=== PATIENT | male | born 1955 | race Caucasian/White ===

== ENCOUNTER → 2017-07-22 | Emergency (ER) | payer MEDICARE, OTHER | END | disposition home or self-care (01) | LOC: FTE 09:28 | DX: S90.412A Abrasion, left great toe, initial encounter (principal); E11.9 Type 2 diabetes mellitus without complications; I25.10 Atherosclerotic heart disease of native coronary artery without angina pectoris; W26.8XXA Contact with other sharp object(s), not elsewhere classified, initial encounter; Y92.9 Unspecified place or not applicable; Z79.01 Long term (current) use of anticoagulants; Z79.4 Long term (current) use of insulin; Z98.61 Coronary angioplasty status; Z79.82 Long term (current) use of aspirin | CPT/HCPCS: 99283 ==

== ENCOUNTER → 2017-08-05 | Emergency (ER) | payer MEDICARE, OTHER | END | disposition home or self-care (01) | LOC: FTE 20:16 | DX: S90.211A Contusion of right great toe with damage to nail, initial encounter (principal); E11.9 Type 2 diabetes mellitus without complications; I12.0 Hypertensive chronic kidney disease with stage 5 chronic kidney disease or end stage renal disease; N18.6 End stage renal disease; X58.XXXA Exposure to other specified factors, initial encounter; Y92.9 Unspecified place or not applicable; Z99.2 Dependence on renal dialysis; Z79.4 Long term (current) use of insulin; Z79.82 Long term (current) use of aspirin; Z95.1 Presence of aortocoronary bypass graft | CPT/HCPCS: 73660; 99283-25 ==

== ENCOUNTER 2017-10-17 00:35 | Inpatient (IN) | payer MEDICARE, OTHER ==
[2017-10-17 01:22] LABS: ADD MAN DIFF? NO
[2017-10-17 01:25] LABS: BASOPHILS % 0.5 % (0.0-2.0); EOSINOPHILS # 0.4 10^3/ul (0.0-0.5); EOSINOPHILS % 4.7 % (0.0-7.0); HEMATOCRIT 29.6 % (42.0-52.0); HEMOGLOBIN 10.1 g/dl (14.0-18.0); LYMPHOCYTES # 1.7 10^3/ul (0.8-2.9); LYMPHOCYTES % 21.8 % (15.0-51.0); MEAN CORPUSCULAR HEMOGLOBIN 32.3 pg (29.0-33.0); MEAN CORPUSCULAR HGB CONC 34.1 g/dl (32.0-37.0); MEAN CORPUSCULAR VOLUME 94.6 fl (82.0-101.0); MEAN PLATELET VOLUME 12.7 fl (7.4-10.4); MONOCYTE # 0.9 10^3/ul (0.3-0.9); MONOCYTES % 11.5 % (0.0-11.0); NEUTROPHIL # 4.7 10^3/ul (1.6-7.5); NEUTROPHILS % 61.2 % (39.0-77.0); PLATELET COUNT 136 10^3/UL (140-415); RED BLOOD COUNT 3.13 10^6/ul (4.70-6.10); RED CELL DISTRIBUTION WIDTH 13.2 % (11.5-14.5)
[2017-10-17 01:25] LABS: WHITE BLOOD COUNT 7.7 10^3/ul (4.8-10.8)
[2017-10-17 01:43] LABS: ANION GAP 17 (8-16); BLOOD UREA NITROGEN 25 mg/dl (7-20); CALCIUM 8.4 mg/dl (8.4-10.2); CARBON DIOXIDE 27 mmol/L (21-31); CHLORIDE 100 mmol/L (97-110); CREATININE 5.49 mg/dl (0.61-1.24); GLUCOSE 209 mg/dl (70-220); POTASSIUM 3.2 mmol/L (3.5-5.1); SODIUM 141 mmol/L (135-144)
[2017-10-17 01:54] LABS: TROPONIN-I 0.044 ng/ml (0.00-0.12)
[2017-10-17] MEDS ORDERED: morphine 2 MG INJ IV (07:00)
[2017-10-17 07:03] LABS: CREATINE KINASE 88 IU/L (23-200)
[2017-10-17 07:10] LABS: CK INDEX 0.9; TROPONIN-I 0.076 ng/ml (0.00-0.12)
[2017-10-17] MEDS: CALCIUM ACETATE 667 MG CAP PO ×4 (07:35→17:13)
[2017-10-17] MEDS: ASPIRIN (EC) 81 MG TAB PO (08:15)
[2017-10-17] MEDS: CLOPIDOGREL 75 MG TAB PO (08:15)
[2017-10-17] MEDS: GABAPENTIN 300 MG CAP PO ×2 (08:15→21:19)
[2017-10-17] MEDS: RANOLAZINE (SR) 500 MG TAB PO ×2 (08:16→21:16)
[2017-10-17] MEDS: ISOSORBIDE MONONITRATE(SR)60 MG TAB PO (08:16)
[2017-10-17] MEDS: PANTOPRAZOLE (EC) 40 MG TAB PO ×2 (08:16→17:13)
[2017-10-17] MEDS: NIFEdipine (XL) 30 MG TAB PO ×2 (08:16→21:16)
[2017-10-17] MEDS: METOCLOPRAMIDE 5 MG TAB PO ×4 (08:16→21:16)
[2017-10-17] MEDS: METOPROLOL 50 MG TAB PO (08:17)
[2017-10-17] MEDS ORDERED: DEXTROSE 50% 50 ML SYRINGE IV ×2 (10:30)
[2017-10-17] MEDS ORDERED: GLUCOSE GEL 15 GRAM TUBE PO ×2 (10:30)
[2017-10-17] MEDS ORDERED: GLUCAGON 1 MG INJ IM (10:30)
[2017-10-17] MEDS ORDERED: GLUCOSE GEL 15 GRAM TUBE BUCCAL (10:30)
[2017-10-17 11:40] LABS: TROPONIN-I 0.093 ng/ml (0.00-0.12)
[2017-10-17] MEDS ORDERED: hydrALAzine 20 MG INJ IV (12:30)
[2017-10-17] MEDS: INSULIN ASPART [NOVOLOG] 3 ML PEN SC ×3 (13:00→20:46)
[2017-10-17] MEDS: REGADENOSON 0.4 MG/5 ML SYG (13:05)
[2017-10-17 13:49] LABS: HEMOGLOBIN A1C 6.5 % (0-5.9)
[2017-10-17] MEDS: ONDANSETRON 4 MG INJ IV (14:07)
[2017-10-17] MEDS: HEPARIN 5,000 UNIT/0.5 ML VIAL SC ×2 (14:12→21:18)
[2017-10-17 14:44] LABS: OCCULT BLOOD STOOL NEGATIVE (NEGATIVE)
[2017-10-17 18:08] LABS: CREATINE KINASE 80 IU/L (23-200)
[2017-10-17 18:20] LABS: CK INDEX 1.4; TROPONIN-I 0.078 ng/ml (0.00-0.12)
[2017-10-17 18:22] LABS: CK-MB 1.12 ng/ml (0.0-2.4)
[2017-10-17] MEDS: INSULIN GLARGINE [LANtus] 3 ML PEN SC (20:31)
[2017-10-17] MEDS: ATORVASTATIN 40 MG TAB PO (21:12)
[2017-10-17 22:55] LABS: TROPONIN-I 0.075 ng/ml (0.00-0.12)
[2017-10-18] MEDS: ACCU-CHEK XX (02:01)
[2017-10-18 05:42] LABS: ADD MAN DIFF? NO
[2017-10-18 05:47] LABS: BASOPHILS % 0.5 % (0.0-2.0); EOSINOPHILS # 0.4 10^3/ul (0.0-0.5); EOSINOPHILS % 5.4 % (0.0-7.0); HEMATOCRIT 27.7 % (42.0-52.0); HEMOGLOBIN 9.4 g/dl (14.0-18.0); LYMPHOCYTES # 1.6 10^3/ul (0.8-2.9); LYMPHOCYTES % 21.7 % (15.0-51.0); MEAN CORPUSCULAR HEMOGLOBIN 32.5 pg (29.0-33.0); MEAN CORPUSCULAR HGB CONC 33.9 g/dl (32.0-37.0); MEAN CORPUSCULAR VOLUME 95.8 fl (82.0-101.0); MEAN PLATELET VOLUME 12.6 fl (7.4-10.4); MONOCYTE # 0.8 10^3/ul (0.3-0.9); MONOCYTES % 10.4 % (0.0-11.0); NEUTROPHIL # 4.6 10^3/ul (1.6-7.5); NEUTROPHILS % 61.9 % (39.0-77.0); PLATELET COUNT 149 10^3/UL (140-415); RED BLOOD COUNT 2.89 10^6/ul (4.70-6.10); RED CELL DISTRIBUTION WIDTH 13.1 % (11.5-14.5)
[2017-10-18 05:47] LABS: WHITE BLOOD COUNT 7.4 10^3/ul (4.8-10.8)
[2017-10-18] MEDS: PANTOPRAZOLE (EC) 40 MG TAB PO ×2 (05:55→17:06)
[2017-10-18 06:19] LABS: MAGNESIUM 2.1 mg/dl (1.7-2.5)
[2017-10-18 07:29] LABS: ALANINE AMINOTRANSFERASE 21 IU/L (13-69); ALBUMIN 3.5 g/dl (3.3-4.9); ALBUMIN/GLOBULIN RATIO 1.34; ALKALINE PHOSPHATASE 54 IU/L (42-121); ANION GAP 16 (8-16); ASPARTATE AMINO TRANSFERASE 12 IU/L (15-46); BLOOD UREA NITROGEN 38 mg/dl (7-20); CARBON DIOXIDE 27 mmol/L (21-31); CHLORIDE 101 mmol/L (97-110); CREATININE 7.97 mg/dl (0.61-1.24); GLUCOSE 96 mg/dl (70-220); POTASSIUM 3.7 mmol/L (3.5-5.1); SODIUM 140 mmol/L (135-144); TOTAL PROTEIN 6.1 g/dl (6.1-8.1)
[2017-10-18] MEDS: INSULIN ASPART [NOVOLOG] 3 ML PEN SC ×4 (07:32→22:17)
[2017-10-18] MEDS: METOCLOPRAMIDE 5 MG TAB PO ×4 (08:03→22:14)
[2017-10-18] MEDS: GABAPENTIN 300 MG CAP PO ×2 (08:03→22:13)
[2017-10-18] MEDS: CALCIUM ACETATE 667 MG CAP PO ×3 (08:03→17:06)
[2017-10-18] MEDS: ISOSORBIDE MONONITRATE(SR)60 MG TAB PO (08:04)
[2017-10-18] MEDS: NIFEdipine (XL) 30 MG TAB PO ×2 (08:04→22:14)
[2017-10-18] MEDS: CLOPIDOGREL 75 MG TAB PO (08:04)
[2017-10-18] MEDS: ASPIRIN (EC) 81 MG TAB PO (08:04)
[2017-10-18] MEDS: HEPARIN 5,000 UNIT/0.5 ML VIAL SC ×2 (08:06→22:16)
[2017-10-18] MEDS: INSULIN GLARGINE [LANtus] 3 ML PEN SC ×2 (08:06→19:35)
[2017-10-18] MEDS: RANOLAZINE (SR) 500 MG TAB PO ×2 (08:55→22:13)
[2017-10-18] MEDS: NITROGLYCERIN (SL) 0.4 MG TAB SL (16:46)
[2017-10-18] MEDS: ACETAMINOPHEN 325 MG TAB PO (19:23)
[2017-10-18] MEDS: ATORVASTATIN 40 MG TAB PO (22:14)
[2017-10-19] MEDS: ACCU-CHEK XX (02:00)
[2017-10-19] MEDS: PANTOPRAZOLE (EC) 40 MG TAB PO ×2 (06:44→18:15)
[2017-10-19] MEDS: INSULIN ASPART [NOVOLOG] 3 ML PEN SC ×4 (08:00→21:00)
[2017-10-19] MEDS: CALCIUM ACETATE 667 MG CAP PO ×3 (08:00→18:12)
[2017-10-19] MEDS: ASPIRIN (EC) 81 MG TAB PO (08:33)
[2017-10-19] MEDS: GABAPENTIN 300 MG CAP PO ×2 (08:33→21:56)
[2017-10-19] MEDS: CLOPIDOGREL 75 MG TAB PO (08:33)
[2017-10-19] MEDS: NIFEdipine (XL) 30 MG TAB PO ×2 (08:34→21:58)
[2017-10-19] MEDS: METOCLOPRAMIDE 5 MG TAB PO ×4 (08:34→21:58)
[2017-10-19] MEDS: RANOLAZINE (SR) 500 MG TAB PO ×2 (08:34→21:58)
[2017-10-19] MEDS: ISOSORBIDE MONONITRATE(SR)60 MG TAB PO (08:34)
[2017-10-19] MEDS: INSULIN GLARGINE [LANtus] 3 ML PEN SC ×2 (08:38→21:56)
[2017-10-19] MEDS: HEPARIN 5,000 UNIT/0.5 ML VIAL SC ×2 (08:39→21:55)
[2017-10-19] MEDS ORDERED: MIDAZOLAM 1 MG/ML 2 ML INJ (09:54)
[2017-10-19] MEDS ORDERED: HEPARIN 1000 UNITS/ML 10 ML INJ (09:54)
[2017-10-19] MEDS ORDERED: IODIXANOL LOCM 100 ML BTL (09:54)
[2017-10-19] MEDS ORDERED: LIDOCAINE 1% (MDV) 20 ML INJ (09:54)
[2017-10-19] MEDS ORDERED: FENTAnyl 50 MCG/ML VIAL (09:55)
[2017-10-19] MEDS ORDERED: VERAPAMIL 5 MG INJ (09:55)
[2017-10-19] MEDS ORDERED: NITROGLYCERIN (IC) 100 MCG/ML INJ (09:55)
[2017-10-19] MEDS ORDERED: TICAGRELOR 90 MG TABLET (10:42)
[2017-10-19] MEDS ORDERED: ACETAMINOPHEN 325 MG TAB PO (12:00)
[2017-10-19] MEDS ORDERED: ZOLPIDEM 5 MG TAB PO (12:00)
[2017-10-19] MEDS: OXYCODONE/ACETAMINOPHEN (5/325) TAB PO (16:46)
[2017-10-19 16:56] LABS: HEPATITIS B SURFACE ANTIGEN NEGATIVE (NEGATIVE)
[2017-10-19 17:08] LABS: HEPATITIS B SURFACE ANTIBODY POSITIVE (NEGATIVE)
[2017-10-19] MEDS: HEPARIN 1000 UNITS/ML 10 ML INJ CATHETER (18:29)
[2017-10-19] MEDS: morphine 2 MG INJ IV (19:20)
[2017-10-19] MEDS: NITROGLYCERIN (SL) 0.4 MG TAB SL ×2 (19:22→19:25)
[2017-10-19 21:04] LABS: TROPONIN-I 0.121 ng/ml (0.00-0.12)
[2017-10-19] MEDS: ATORVASTATIN 40 MG TAB PO (21:56)
[2017-10-19] MEDS: TICAGRELOR 90 MG TABLET PO (21:57)
[2017-10-19] MEDS: LORAZEPAM 0.5 MG TAB PO (21:59)
[2017-10-20] MEDS: ACCU-CHEK XX (02:00)
[2017-10-20 03:07] LABS: TROPONIN-I 0.516 ng/ml (0.00-0.12)
[2017-10-20] MEDS: PANTOPRAZOLE (EC) 40 MG TAB PO (05:39)
[2017-10-20 06:04] LABS: ADD MAN DIFF? NO
[2017-10-20 06:07] LABS: BASOPHILS % 0.3 % (0.0-2.0); EOSINOPHILS # 0.2 10^3/ul (0.0-0.5); EOSINOPHILS % 1.9 % (0.0-7.0); HEMOGLOBIN 9.6 g/dl (14.0-18.0); LYMPHOCYTES # 1.1 10^3/ul (0.8-2.9); LYMPHOCYTES % 11.7 % (15.0-51.0); MEAN CORPUSCULAR HEMOGLOBIN 31.7 pg (29.0-33.0); MEAN CORPUSCULAR HGB CONC 34.3 g/dl (32.0-37.0); MEAN CORPUSCULAR VOLUME 92.4 fl (82.0-101.0); MEAN PLATELET VOLUME 12.4 fl (7.4-10.4); MONOCYTES % 11.2 % (0.0-11.0); NEUTROPHIL # 6.7 10^3/ul (1.6-7.5); NEUTROPHILS % 74.7 % (39.0-77.0); PLATELET COUNT 182 10^3/UL (140-415); RED BLOOD COUNT 3.03 10^6/ul (4.70-6.10); RED CELL DISTRIBUTION WIDTH 12.9 % (11.5-14.5)
[2017-10-20 06:37] LABS: ANION GAP 16 (8-16); BLOOD UREA NITROGEN 34 mg/dl (7-20); CALCIUM 9.4 mg/dl (8.4-10.2); CARBON DIOXIDE 29 mmol/L (21-31); CHLORIDE 98 mmol/L (97-110); CREATINE KINASE 66 IU/L (23-200); CREATININE 7.03 mg/dl (0.61-1.24); GLUCOSE 64 mg/dl (70-220); POTASSIUM 3.8 mmol/L (3.5-5.1); SODIUM 139 mmol/L (135-144)
[2017-10-20 06:47] LABS: CK INDEX 2.3
[2017-10-20 07:01] LABS: CK-MB 1.49 ng/ml (0.0-2.4); TROPONIN-I 0.569 ng/ml (0.00-0.12)
[2017-10-20] MEDS: INSULIN ASPART [NOVOLOG] 3 ML PEN SC ×2 (07:35→11:30)
[2017-10-20] MEDS: GABAPENTIN 300 MG CAP PO (08:36)
[2017-10-20] MEDS: CALCIUM ACETATE 667 MG CAP PO ×2 (08:36→11:43)
[2017-10-20] MEDS: RANOLAZINE (SR) 500 MG TAB PO (08:36)
[2017-10-20] MEDS: METOCLOPRAMIDE 5 MG TAB PO ×2 (08:36→13:19)
[2017-10-20] MEDS: NIFEdipine (XL) 30 MG TAB PO (08:36)
[2017-10-20] MEDS: ASPIRIN (EC) 81 MG TAB PO (08:37)
[2017-10-20] MEDS: ISOSORBIDE MONONITRATE(SR)60 MG TAB PO (08:37)
[2017-10-20] MEDS: TICAGRELOR 90 MG TABLET PO (08:38)
[2017-10-20] MEDS: HEPARIN 5,000 UNIT/0.5 ML VIAL SC (08:38)
[2017-10-20] MEDS: INSULIN GLARGINE [LANtus] 3 ML PEN SC (08:39)
== END 2017-10-20 17:55 | disposition home or self-care (01) | DRG 246 ==
LOC: MS4 10-19 01:04 → E/R 00:35 → MS4 10-19 01:21 → MS3 02:07 → ICU 10-19 12:03
PROC: 0270356 Dilation of Coronary Artery, One Artery, Bifurcation, with Two Drug-eluting Intraluminal Devices, Percutaneous Approach (ICD-10-PCS; principal; 2017-10-19 09:43)
PROC: 4A023N7 Measurement of Cardiac Sampling and Pressure, Left Heart, Percutaneous Approach (ICD-10-PCS; 2017-10-19 09:43)
PROC: B211YZZ Fluoroscopy of Multiple Coronary Arteries using Other Contrast (ICD-10-PCS; 2017-10-19 09:43)
PROC: B215YZZ Fluoroscopy of Left Heart using Other Contrast (ICD-10-PCS; 2017-10-19 09:43)
PROC: 5A1D70Z Performance of Urinary Filtration, Intermittent, Less than 6 Hours Per Day (ICD-10-PCS; 2017-10-19 09:43)
DX: I25.110 Atherosclerotic heart disease of native coronary artery with unstable angina pectoris (principal); N18.6 End stage renal disease; I12.0 Hypertensive chronic kidney disease with stage 5 chronic kidney disease or end stage renal disease; E11.22 Type 2 diabetes mellitus with diabetic chronic kidney disease; D69.6 Thrombocytopenia, unspecified; R07.9 Chest pain, unspecified; B18.2 Chronic viral hepatitis C; E87.6 Hypokalemia; D63.8 Anemia in other chronic diseases classified elsewhere; I16.0 Hypertensive urgency; E78.5 Hyperlipidemia, unspecified; Z79.4 Long term (current) use of insulin; Z79.82 Long term (current) use of aspirin; Z79.02 Long term (current) use of antithrombotics/antiplatelets; Z99.2 Dependence on renal dialysis; Z95.1 Presence of aortocoronary bypass graft; Z95.5 Presence of coronary angioplasty implant and graft
CPT/HCPCS: 36415; 71045; 78452; 80048; 80053; 82270; 82550; 82553; 82962; 83036; 83735; 84100; 84484; 85025; 86706; 87045; 87075; 87081; 87205; 87340; 90935; 92929; 93005; 93017; 93306; 93458; 99217; 99285-25

== ENCOUNTER 2017-10-20 21:40 | Inpatient (IN) | payer MEDICARE, OTHER ==
[2017-10-20] MEDS ORDERED: ACETAMINOPHEN 325 MG TAB PO (22:00)
[2017-10-20] MEDS ORDERED: DOCUSATE SODIUM 100 MG CAP PO (23:00)
[2017-10-20] MEDS ORDERED: ZOLPIDEM 5 MG TAB PO (23:00)
[2017-10-20] MEDS ORDERED: LORAZEPAM 2 MG INJ IV (23:00)
[2017-10-20] MEDS ORDERED: BISACODYL (EC) 5 MG TAB PO (23:00)
[2017-10-20] MEDS ORDERED: NACL 0.9% 3 ML SYG IV (23:00)
[2017-10-20 23:08] LABS: ADD MAN DIFF? NO
[2017-10-20 23:15] LABS: BASOPHIL # 0.1 10^3/ul (0.0-0.1); BASOPHILS % 0.5 % (0.0-2.0); EOSINOPHILS # 0.2 10^3/ul (0.0-0.5); EOSINOPHILS % 2.5 % (0.0-7.0); HEMATOCRIT 29.3 % (42.0-52.0); HEMOGLOBIN 10.2 g/dl (14.0-18.0); LYMPHOCYTES # 1.4 10^3/ul (0.8-2.9); LYMPHOCYTES % 14.4 % (15.0-51.0); MEAN CORPUSCULAR HEMOGLOBIN 32.4 pg (29.0-33.0); MEAN CORPUSCULAR HGB CONC 34.8 g/dl (32.0-37.0); MEAN PLATELET VOLUME 12.8 fl (7.4-10.4); MONOCYTE # 1.2 10^3/ul (0.3-0.9); MONOCYTES % 12.5 % (0.0-11.0); NEUTROPHIL # 6.5 10^3/ul (1.6-7.5); NEUTROPHILS % 69.7 % (39.0-77.0); PLATELET COUNT 198 10^3/UL (140-415); RED BLOOD COUNT 3.15 10^6/ul (4.70-6.10)
[2017-10-20 23:15] LABS: WHITE BLOOD COUNT 9.4 10^3/ul (4.8-10.8)
[2017-10-20] MEDS ORDERED: LORAZEPAM 0.5 MG TAB PO (23:30)
[2017-10-20 23:37] LABS: ANION GAP 17 (8-16); BLOOD UREA NITROGEN 43 mg/dl (7-20); CALCIUM 9.7 mg/dl (8.4-10.2); CARBON DIOXIDE 28 mmol/L (21-31); CHLORIDE 96 mmol/L (97-110); CREATININE 8.46 mg/dl (0.61-1.24); GLUCOSE 88 mg/dl (70-220); POTASSIUM 4.4 mmol/L (3.5-5.1); SODIUM 137 mmol/L (135-144)
[2017-10-20] MEDS ORDERED: GLUCOSE GEL 15 GRAM TUBE PO ×2 (23:45)
[2017-10-20] MEDS ORDERED: GLUCAGON 1 MG INJ IM (23:45)
[2017-10-20] MEDS ORDERED: DEXTROSE 50% 50 ML SYRINGE IV ×2 (23:45)
[2017-10-20 23:59] LABS: CREATINE KINASE 113 IU/L (23-200)
[2017-10-21 00:14] LABS: CK INDEX 1.4; TROPONIN-I 0.585 ng/ml (0.00-0.12)
[2017-10-21] MEDS: ONDANSETRON 4 MG INJ IV (01:08)
[2017-10-21] MEDS: morphine 2 MG INJ IV (01:08)
[2017-10-21] MEDS: CIPROFLOXACIN 0.3% 3.5 GM OPH OINT BOTH EYES ×7 (01:22→21:35)
[2017-10-21] MEDS: RANOLAZINE (SR) 500 MG TAB PO ×3 (01:47→20:37)
[2017-10-21] MEDS: ACCU-CHEK XX (02:00)
[2017-10-21 06:36] LABS: ADD MAN DIFF? NO
[2017-10-21 06:38] LABS: WHITE BLOOD COUNT 8.6 10^3/ul (4.8-10.8)
[2017-10-21 06:38] LABS: BASOPHILS % 0.5 % (0.0-2.0); EOSINOPHILS # 0.3 10^3/ul (0.0-0.5); EOSINOPHILS % 3.4 % (0.0-7.0); HEMATOCRIT 27.5 % (42.0-52.0); HEMOGLOBIN 9.5 g/dl (14.0-18.0); LYMPHOCYTES # 1.3 10^3/ul (0.8-2.9); LYMPHOCYTES % 15.7 % (15.0-51.0); MEAN CORPUSCULAR HEMOGLOBIN 32.8 pg (29.0-33.0); MEAN CORPUSCULAR HGB CONC 34.5 g/dl (32.0-37.0); MEAN CORPUSCULAR VOLUME 94.8 fl (82.0-101.0); MEAN PLATELET VOLUME 12.5 fl (7.4-10.4); MONOCYTE # 1.2 10^3/ul (0.3-0.9); MONOCYTES % 14.3 % (0.0-11.0); NEUTROPHIL # 5.6 10^3/ul (1.6-7.5); NEUTROPHILS % 65.7 % (39.0-77.0); PLATELET COUNT 192 10^3/UL (140-415); RED CELL DISTRIBUTION WIDTH 12.9 % (11.5-14.5)
[2017-10-21 06:57] LABS: CREATINE KINASE 96 IU/L (23-200)
[2017-10-21 07:01] LABS: ALANINE AMINOTRANSFERASE 19 IU/L (13-69); ALBUMIN 3.8 g/dl (3.3-4.9); ALBUMIN/GLOBULIN RATIO 1.35; ALKALINE PHOSPHATASE 61 IU/L (42-121); ANION GAP 16 (8-16); ASPARTATE AMINO TRANSFERASE 16 IU/L (15-46); BILIRUBIN,INDIRECT 0.2 mg/dl (0-1.1); BILIRUBIN,TOTAL 0.2 mg/dl (0.2-1.3); BLOOD UREA NITROGEN 49 mg/dl (7-20); CALCIUM 9.3 mg/dl (8.4-10.2); CARBON DIOXIDE 29 mmol/L (21-31); CHLORIDE 98 mmol/L (97-110); CREATININE 8.86 mg/dl (0.61-1.24); GLUCOSE 101 mg/dl (70-220); MAGNESIUM 2.1 mg/dl (1.7-2.5); POTASSIUM 4.6 mmol/L (3.5-5.1); SODIUM 138 mmol/L (135-144); TOTAL PROTEIN 6.6 g/dl (6.1-8.1)
[2017-10-21 07:09] LABS: CK INDEX 1.3
[2017-10-21 07:10] LABS: CK-MB 1.29 ng/ml (0.0-2.4); TROPONIN-I 0.537 ng/ml (0.00-0.12)
[2017-10-21 07:12] LABS: PHOSPHORUS 4.4 mg/dl (2.5-4.9)
[2017-10-21] MEDS: CALCIUM ACETATE 667 MG CAP PO ×3 (08:00→17:27)
[2017-10-21] MEDS: SEVELAMER CARBONATE 0.8 GM PKT PO ×3 (08:00→17:28)
[2017-10-21] MEDS ORDERED: INSULIN ASPART [NOVOLOG] 3 ML PEN SC ×2 (08:00)
[2017-10-21] MEDS: INSULIN ASPART [NOVOLOG] 3 ML PEN SC ×3 (08:00→18:16)
[2017-10-21] MEDS: SALINE 0.65% 45 ML NAS SPRAY NASAL (08:14)
[2017-10-21] MEDS ORDERED: ISOSORBIDE MONONITRATE(SR)60 MG TAB PO (09:00)
[2017-10-21] MEDS ORDERED: CALCIUM CARBONATE 500 MG CHEW TAB PO (09:00)
[2017-10-21] MEDS ORDERED: NIFEdipine (XL) 30 MG TAB PO (09:00)
[2017-10-21 11:20] LABS: CREATINE KINASE 107 IU/L (23-200)
[2017-10-21 11:31] LABS: CK INDEX 1.5
[2017-10-21 11:41] LABS: CK-MB 1.61 ng/ml (0.0-2.4); TROPONIN-I 0.501 ng/ml (0.00-0.12)
[2017-10-21] MEDS: HEPARIN 1000 UNITS/ML 10 ML INJ CATHETER (12:46)
[2017-10-21] MEDS: FOLIC ACID 0.4 MG TAB PO (13:08)
[2017-10-21] MEDS: TICAGRELOR 90 MG TABLET PO ×2 (13:08→20:38)
[2017-10-21] MEDS: FAMOTIDINE 20 MG TAB PO ×2 (13:09→20:37)
[2017-10-21] MEDS: NIFEdipine (XL) 30 MG TAB PO (13:09)
[2017-10-21] MEDS: GABAPENTIN 300 MG CAP PO ×3 (13:10→20:37)
[2017-10-21] MEDS: ASPIRIN (EC) 81 MG TAB PO (13:11)
[2017-10-21] MEDS: HYDROCODONE/APAP (5/325) TAB PO ×2 (13:13→17:27)
[2017-10-21] MEDS: EPOETIN 4000 UNITS/1 ML INJ (ESRD) SC (17:27)
[2017-10-21] MEDS: ACETAMINOPHEN 325 MG TAB PO (18:26)
[2017-10-21] MEDS: INSULIN GLARGINE [LANtus] 3 ML PEN SC (20:33)
[2017-10-21] MEDS: GLUCOSE GEL 15 GRAM TUBE BUCCAL (20:37)
[2017-10-21] MEDS: ATORVASTATIN 40 MG TAB PO (20:37)
[2017-10-21] MEDS: HEPARIN 5,000 UNIT/0.5 ML VIAL SC (20:43)
[2017-10-22] MEDS: ACCU-CHEK XX (02:00)
[2017-10-22] MEDS: CIPROFLOXACIN 0.3% 3.5 GM OPH OINT BOTH EYES ×7 (03:00→22:44)
[2017-10-22] MEDS: ONDANSETRON 4 MG INJ IV (06:44)
[2017-10-22] MEDS: RANOLAZINE (SR) 500 MG TAB PO ×2 (08:13→20:47)
[2017-10-22] MEDS: GABAPENTIN 300 MG CAP PO ×3 (08:13→20:47)
[2017-10-22] MEDS: FOLIC ACID 0.4 MG TAB PO (08:13)
[2017-10-22] MEDS: FAMOTIDINE 20 MG TAB PO ×2 (08:14→20:48)
[2017-10-22] MEDS: CALCIUM ACETATE 667 MG CAP PO ×3 (08:14→16:59)
[2017-10-22] MEDS: ASPIRIN (EC) 81 MG TAB PO (08:14)
[2017-10-22] MEDS: SEVELAMER CARBONATE 0.8 GM PKT PO ×3 (08:14→16:58)
[2017-10-22] MEDS: NIFEdipine (XL) 30 MG TAB PO (08:14)
[2017-10-22] MEDS: ISOSORBIDE MONONITRATE(SR)60 MG TAB PO (08:15)
[2017-10-22] MEDS: TICAGRELOR 90 MG TABLET PO ×3 (08:15→20:51)
[2017-10-22] MEDS: HEPARIN 5,000 UNIT/0.5 ML VIAL SC ×2 (08:18→20:51)
[2017-10-22] MEDS: INSULIN ASPART [NOVOLOG] 3 ML PEN SC ×2 (08:18→17:05)
[2017-10-22 08:27] LABS: ADD MAN DIFF? NO
[2017-10-22 08:29] LABS: BASOPHILS % 0.4 % (0.0-2.0); EOSINOPHILS # 0.4 10^3/ul (0.0-0.5); EOSINOPHILS % 3.5 % (0.0-7.0); HEMATOCRIT 29.3 % (42.0-52.0); LYMPHOCYTES # 1.3 10^3/ul (0.8-2.9); LYMPHOCYTES % 12.3 % (15.0-51.0); MEAN CORPUSCULAR HEMOGLOBIN 32.3 pg (29.0-33.0); MEAN CORPUSCULAR HGB CONC 34.1 g/dl (32.0-37.0); MEAN CORPUSCULAR VOLUME 94.5 fl (82.0-101.0); MEAN PLATELET VOLUME 12.4 fl (7.4-10.4); MONOCYTE # 1.2 10^3/ul (0.3-0.9); MONOCYTES % 12.1 % (0.0-11.0); NEUTROPHIL # 7.3 10^3/ul (1.6-7.5); NEUTROPHILS % 71.4 % (39.0-77.0); PLATELET COUNT 212 10^3/UL (140-415); RED CELL DISTRIBUTION WIDTH 12.6 % (11.5-14.5)
[2017-10-22 08:29] LABS: WHITE BLOOD COUNT 10.2 10^3/ul (4.8-10.8)
[2017-10-22] MEDS: GUAIFENESIN/DM 5ML CUP PO ×2 (08:31→22:50)
[2017-10-22 08:42] LABS: PHOSPHORUS 3.7 mg/dl (2.5-4.9)
[2017-10-22 08:55] LABS: ALANINE AMINOTRANSFERASE 20 IU/L (13-69); ALBUMIN 3.5 g/dl (3.3-4.9); ALBUMIN/GLOBULIN RATIO 1.25; ALKALINE PHOSPHATASE 76 IU/L (42-121); ANION GAP 19 (8-16); ASPARTATE AMINO TRANSFERASE 14 IU/L (15-46); BILIRUBIN,INDIRECT 0.3 mg/dl (0-1.1); BILIRUBIN,TOTAL 0.3 mg/dl (0.2-1.3); BLOOD UREA NITROGEN 34 mg/dl (7-20); CALCIUM 9.3 mg/dl (8.4-10.2); CARBON DIOXIDE 27 mmol/L (21-31); CHLORIDE 95 mmol/L (97-110); CREATINE KINASE 75 IU/L (23-200); CREATININE 6.89 mg/dl (0.61-1.24); GLUCOSE 93 mg/dl (70-220); POTASSIUM 4.6 mmol/L (3.5-5.1); SODIUM 136 mmol/L (135-144); TOTAL PROTEIN 6.3 g/dl (6.1-8.1)
[2017-10-22 09:00] LABS: CK INDEX 1.5
[2017-10-22 09:13] LABS: CK-MB 1.09 ng/ml (0.0-2.4); TROPONIN-I 0.371 ng/ml (0.00-0.12)
[2017-10-22] MEDS: HYDROCODONE/APAP (5/325) TAB PO ×2 (10:35→22:44)
[2017-10-22] MEDS: ACETAMINOPHEN 325 MG TAB PO (10:35)
[2017-10-22] MEDS: LORAZEPAM 0.5 MG TAB PO (10:35)
[2017-10-22 12:12] LABS: BENZODIAZEPINES Negative (NEGATIVE); OPIATES Positive (NEGATIVE)
[2017-10-22 12:14] LABS: AMPHETAMINE/METHAMPHETAMINE Negative (NEGATIVE); BARBITURATES Negative (NEGATIVE); CANNABINOIDS Negative (NEGATIVE); COCAINE Negative (NEGATIVE)
[2017-10-22] MEDS: ATORVASTATIN 40 MG TAB PO (20:47)
[2017-10-22] MEDS: INSULIN GLARGINE [LANtus] 3 ML PEN SC (20:49)
[2017-10-23] MEDS: ACCU-CHEK XX (02:00)
[2017-10-23] MEDS: CIPROFLOXACIN 0.3% 3.5 GM OPH OINT BOTH EYES ×6 (05:22→23:00)
[2017-10-23 07:13] LABS: ADD MAN DIFF? NO
[2017-10-23 07:16] LABS: ABNORMAL IP MESSAGE 1; BASOPHILS % 0.3 % (0.0-2.0); EOSINOPHILS # 0.2 10^3/ul (0.0-0.5); EOSINOPHILS % 1.9 % (0.0-7.0); HEMATOCRIT 27.8 % (42.0-52.0); HEMOGLOBIN 9.4 g/dl (14.0-18.0); LYMPHOCYTES # 1.2 10^3/ul (0.8-2.9); MEAN CORPUSCULAR HEMOGLOBIN 31.8 pg (29.0-33.0); MEAN CORPUSCULAR HGB CONC 33.8 g/dl (32.0-37.0); MEAN CORPUSCULAR VOLUME 93.9 fl (82.0-101.0); MEAN PLATELET VOLUME 12.5 fl (7.4-10.4); MONOCYTE # 1.8 10^3/ul (0.3-0.9); MONOCYTES % 14.2 % (0.0-11.0); NEUTROPHIL # 9.6 10^3/ul (1.6-7.5); NEUTROPHILS % 74.2 % (39.0-77.0); PLATELET COUNT 214 10^3/UL (140-415); POSITIVE DIFF @See below; RED BLOOD COUNT 2.96 10^6/ul (4.70-6.10); RED CELL DISTRIBUTION WIDTH 12.7 % (11.5-14.5)
[2017-10-23 07:38] LABS: CREATINE KINASE 78 IU/L (23-200); MAGNESIUM 1.9 mg/dl (1.7-2.5)
[2017-10-23 07:38] LABS: PHOSPHORUS 3.8 mg/dl (2.5-4.9)
[2017-10-23 07:48] LABS: ANION GAP 19 (8-16); BLOOD UREA NITROGEN 45 mg/dl (7-20); CALCIUM 9.6 mg/dl (8.4-10.2); CARBON DIOXIDE 25 mmol/L (21-31); CHLORIDE 92 mmol/L (97-110); CREATININE 8.86 mg/dl (0.61-1.24); GLUCOSE 119 mg/dl (70-220); POTASSIUM 4.4 mmol/L (3.5-5.1); SODIUM 132 mmol/L (135-144)
[2017-10-23 07:49] LABS: CK INDEX 1.6
[2017-10-23 07:57] LABS: CK-MB 1.21 ng/ml (0.0-2.4); TROPONIN-I 0.259 ng/ml (0.00-0.12)
[2017-10-23] MEDS: ASPIRIN (EC) 81 MG TAB PO (08:12)
[2017-10-23] MEDS: RANOLAZINE (SR) 500 MG TAB PO ×2 (08:12→21:48)
[2017-10-23] MEDS: SEVELAMER CARBONATE 0.8 GM PKT PO ×3 (08:12→17:32)
[2017-10-23] MEDS: NIFEdipine (XL) 30 MG TAB PO (08:12)
[2017-10-23] MEDS: CALCIUM ACETATE 667 MG CAP PO ×3 (08:13→17:32)
[2017-10-23] MEDS: FOLIC ACID 0.4 MG TAB PO (08:13)
[2017-10-23] MEDS: ISOSORBIDE MONONITRATE(SR)60 MG TAB PO (08:14)
[2017-10-23] MEDS: FAMOTIDINE 20 MG TAB PO ×2 (08:15→21:49)
[2017-10-23] MEDS: GABAPENTIN 300 MG CAP PO ×3 (08:15→21:48)
[2017-10-23] MEDS: TICAGRELOR 90 MG TABLET PO ×2 (08:18→22:06)
[2017-10-23] MEDS: INSULIN ASPART [NOVOLOG] 3 ML PEN SC ×3 (08:19→17:41)
[2017-10-23] MEDS: HEPARIN 5,000 UNIT/0.5 ML VIAL SC ×2 (08:19→22:05)
[2017-10-23] MEDS: ONDANSETRON 4 MG INJ IV (09:27)
[2017-10-23] MEDS: morphine 2 MG INJ IV (09:28)
[2017-10-23] MEDS: LORAZEPAM 0.5 MG TAB PO (09:28)
[2017-10-23] MEDS: EPOETIN 4000 UNITS/1 ML INJ (ESRD) SC (17:38)
[2017-10-23] MEDS: INSULIN GLARGINE [LANtus] 3 ML PEN SC (21:00)
[2017-10-23] MEDS: ATORVASTATIN 40 MG TAB PO (21:48)
[2017-10-24] MEDS: ACCU-CHEK XX (02:00)
[2017-10-24 02:26] LABS: HEPATITIS B SURFACE ANTIGEN NEGATIVE (NEGATIVE)
[2017-10-24] MEDS: CIPROFLOXACIN 0.3% 3.5 GM OPH OINT BOTH EYES ×6 (03:00→23:59)
[2017-10-24] MEDS: HEPARIN 1000 UNITS/ML 10 ML INJ CATHETER (03:53)
[2017-10-24 07:58] LABS: ADD MAN DIFF? NO
[2017-10-24 08:06] LABS: ABNORMAL IP MESSAGE 1; BASOPHILS % 0.2 % (0.0-2.0); EOSINOPHILS % 0.2 % (0.0-7.0); HEMATOCRIT 26.9 % (42.0-52.0); HEMOGLOBIN 9.3 g/dl (14.0-18.0); LYMPHOCYTES # 0.7 10^3/ul (0.8-2.9); LYMPHOCYTES % 4.4 % (15.0-51.0); MEAN CORPUSCULAR HEMOGLOBIN 32.5 pg (29.0-33.0); MEAN CORPUSCULAR HGB CONC 34.6 g/dl (32.0-37.0); MEAN CORPUSCULAR VOLUME 94.1 fl (82.0-101.0); MEAN PLATELET VOLUME 12.4 fl (7.4-10.4); MONOCYTES % 12.7 % (0.0-11.0); NEUTROPHIL # 12.7 10^3/ul (1.6-7.5); PLATELET COUNT 232 10^3/UL (140-415); POSITIVE DIFF @See below; RED BLOOD COUNT 2.86 10^6/ul (4.70-6.10); RED CELL DISTRIBUTION WIDTH 12.7 % (11.5-14.5)
[2017-10-24 08:06] LABS: WHITE BLOOD COUNT 15.5 10^3/ul (4.8-10.8)
[2017-10-24] MEDS: SEVELAMER CARBONATE 0.8 GM PKT PO ×3 (08:20→17:34)
[2017-10-24] MEDS: CALCIUM ACETATE 667 MG CAP PO ×3 (08:20→17:34)
[2017-10-24] MEDS: INSULIN ASPART [NOVOLOG] 3 ML PEN SC ×3 (08:25→17:33)
[2017-10-24] MEDS: RANOLAZINE (SR) 500 MG TAB PO ×2 (08:26→22:05)
[2017-10-24] MEDS: FOLIC ACID 0.4 MG TAB PO (08:26)
[2017-10-24 08:27] LABS: PHOSPHORUS 2.5 mg/dl (2.5-4.9)
[2017-10-24 08:27] LABS: MAGNESIUM 1.9 mg/dl (1.7-2.5)
[2017-10-24] MEDS: TICAGRELOR 90 MG TABLET PO ×2 (08:29→22:21)
[2017-10-24 08:30] LABS: ANION GAP 21 (8-16); BLOOD UREA NITROGEN 28 mg/dl (7-20); CALCIUM 9.3 mg/dl (8.4-10.2); CARBON DIOXIDE 25 mmol/L (21-31); CHLORIDE 93 mmol/L (97-110); CREATININE 6.09 mg/dl (0.61-1.24); GLUCOSE 196 mg/dl (70-220); POTASSIUM 4.2 mmol/L (3.5-5.1); SODIUM 135 mmol/L (135-144)
[2017-10-24] MEDS: GABAPENTIN 300 MG CAP PO ×2 (08:30→12:01)
[2017-10-24] MEDS: ISOSORBIDE MONONITRATE(SR)60 MG TAB PO (08:31)
[2017-10-24] MEDS: ASPIRIN (EC) 81 MG TAB PO (08:31)
[2017-10-24] MEDS: NIFEdipine (XL) 30 MG TAB PO (08:31)
[2017-10-24 08:32] LABS: AMMONIA < 9 umol/l (9-30)
[2017-10-24] MEDS: HEPARIN 5,000 UNIT/0.5 ML VIAL SC ×2 (08:32→22:23)
[2017-10-24] MEDS: FAMOTIDINE 20 MG TAB PO ×2 (08:38→22:06)
[2017-10-24] MEDS: ACETAMINOPHEN 325 MG TAB PO (12:01)
[2017-10-24 15:23] LABS: IRON 24 ug/dl (35-150)
[2017-10-24 15:32] LABS: % IRON SATURATION 12 % SAT (22-52); TOTAL IRON BINDING CAPACITY 195 ug/dl (241-421)
[2017-10-24] MEDS: ATORVASTATIN 40 MG TAB PO (22:05)
[2017-10-24] MEDS: GABAPENTIN 100 MG CAP PO (22:05)
[2017-10-24] MEDS: INSULIN GLARGINE [LANtus] 3 ML PEN SC (22:21)
[2017-10-25] MEDS: ACCU-CHEK XX (02:00)
[2017-10-25] MEDS: CIPROFLOXACIN 0.3% 3.5 GM OPH OINT BOTH EYES ×6 (02:51→23:29)
[2017-10-25 06:35] LABS: ADD MAN DIFF? NO
[2017-10-25 06:41] LABS: WHITE BLOOD COUNT 18.5 10^3/ul (4.8-10.8)
[2017-10-25 06:41] LABS: ABNORMAL IP MESSAGE 1; BASOPHILS % 0.2 % (0.0-2.0); EOSINOPHILS # 0.1 10^3/ul (0.0-0.5); EOSINOPHILS % 0.6 % (0.0-7.0); HEMATOCRIT 25.8 % (42.0-52.0); LYMPHOCYTES # 0.9 10^3/ul (0.8-2.9); LYMPHOCYTES % 4.9 % (15.0-51.0); MEAN CORPUSCULAR HGB CONC 34.9 g/dl (32.0-37.0); MEAN CORPUSCULAR VOLUME 94.5 fl (82.0-101.0); MEAN PLATELET VOLUME 12.3 fl (7.4-10.4); MONOCYTES % 10.9 % (0.0-11.0); NEUTROPHIL # 15.2 10^3/ul (1.6-7.5); NEUTROPHILS % 82.5 % (39.0-77.0); PLATELET COUNT 242 10^3/UL (140-415); POSITIVE DIFF @See below; RED BLOOD COUNT 2.73 10^6/ul (4.70-6.10); RED CELL DISTRIBUTION WIDTH 12.8 % (11.5-14.5)
[2017-10-25 07:03] LABS: ANION GAP 17 (8-16); BLOOD UREA NITROGEN 41 mg/dl (7-20); CALCIUM 9.4 mg/dl (8.4-10.2); CARBON DIOXIDE 26 mmol/L (21-31); CHLORIDE 93 mmol/L (97-110); CREATININE 8.42 mg/dl (0.61-1.24); GLUCOSE 156 mg/dl (70-220); MAGNESIUM 2.1 mg/dl (1.7-2.5); POTASSIUM 3.8 mmol/L (3.5-5.1); SODIUM 132 mmol/L (135-144)
[2017-10-25 07:03] LABS: PHOSPHORUS 2.8 mg/dl (2.5-4.9)
[2017-10-25] MEDS: INSULIN ASPART [NOVOLOG] 3 ML PEN SC ×3 (08:07→17:29)
[2017-10-25] MEDS: HEPARIN 5,000 UNIT/0.5 ML VIAL SC (08:08)
[2017-10-25] MEDS: TICAGRELOR 90 MG TABLET PO ×2 (08:08→20:31)
[2017-10-25] MEDS: SEVELAMER CARBONATE 0.8 GM PKT PO ×3 (08:09→17:19)
[2017-10-25] MEDS: CALCIUM ACETATE 667 MG CAP PO ×3 (08:09→17:19)
[2017-10-25] MEDS: ISOSORBIDE MONONITRATE(SR)60 MG TAB PO (08:10)
[2017-10-25] MEDS: FOLIC ACID 0.4 MG TAB PO (08:10)
[2017-10-25] MEDS: RANOLAZINE (SR) 500 MG TAB PO ×2 (08:10→20:11)
[2017-10-25] MEDS: FAMOTIDINE 20 MG TAB PO ×2 (08:10→20:11)
[2017-10-25] MEDS: NIFEdipine (XL) 30 MG TAB PO (08:11)
[2017-10-25] MEDS: ASPIRIN (EC) 81 MG TAB PO (08:11)
[2017-10-25] MEDS: GABAPENTIN 100 MG CAP PO ×2 (08:23→13:00)
[2017-10-25] MEDS: ACETAMINOPHEN 325 MG TAB PO (09:27)
[2017-10-25] MEDS ORDERED: VANCOMYCIN IV PER PHARMACY XX (12:00)
[2017-10-25] MEDS: LEVOFLOXACIN 750MG/D5W (PMX) 150 ML IVPB (12:04)
[2017-10-25] MEDS: LEVETIRACETAM 500 MG (PMX) 100 ML IVPB ×2 (13:58→20:10)
[2017-10-25 14:16] LABS: PROCALCITONIN 0.28 ng/mL (<0.10)
[2017-10-25] MEDS: VANCOMYCIN 2 GM in SOD CHLORIDE 0.9% 500 ML IVPB (15:00)
[2017-10-25] MEDS ORDERED: LORAZEPAM 2 MG INJ IV (15:30)
[2017-10-25] MEDS: LORAZEPAM 2 MG INJ IV (15:34)
[2017-10-25 19:01] LABS: ADD UMIC YES; UR AMORPHOUS CRYSTAL FEW /HPF (NONE SEEN); UR ASCORBIC ACID NEGATIVE (NEGATIVE); UR BACTERIA FEW /HPF (NONE SEEN); UR BILIRUBIN (Dip) NEGATIVE (NEGATIVE); UR BLOOD (Dip) NEGATIVE (NEGATIVE); UR CLARITY SLIGHTLY CLOUDY (CLEAR); UR COLOR YELLOW (YELLOW); UR GLUCOSE (Dip) 1+ mg/dL (NEGATIVE); UR KETONES (Dip) NEGATIVE (NEGATIVE); UR LEUKOCYTE ESTERASE (Dip) NEGATIVE Leu/ul (NEGATIVE); UR NITRITE (Dip) NEGATIVE (NEGATIVE); UR RBC 1 /HPF (0-5); UR SPECIFIC GRAVITY (Dip) 1.019 (1.003-1.030); UR TOTAL PROTEIN (Dip) 3+ mg/dl (NEGATIVE); UR UROBILINOGEN (Dip) NEGATIVE (NEGATIVE); UR WBC 3 /HPF (0-5)
[2017-10-25] MEDS: HYDROCODONE/APAP (5/325) TAB PO (19:56)
[2017-10-25] MEDS: ATORVASTATIN 40 MG TAB PO (20:11)
[2017-10-25] MEDS: INSULIN GLARGINE [LANtus] 3 ML PEN SC (20:30)
[2017-10-26] MEDS: ACCU-CHEK XX (02:00)
[2017-10-26] MEDS: CIPROFLOXACIN 0.3% 3.5 GM OPH OINT BOTH EYES ×6 (03:33→22:48)
[2017-10-26] MEDS: INSULIN ASPART [NOVOLOG] 3 ML PEN SC ×3 (07:57→18:28)
[2017-10-26 08:25] LABS: ADD MAN DIFF? NO
[2017-10-26] MEDS: CALCIUM ACETATE 667 MG CAP PO ×3 (08:27→18:23)
[2017-10-26] MEDS: ASPIRIN (EC) 81 MG TAB PO (08:27)
[2017-10-26] MEDS: SEVELAMER CARBONATE 0.8 GM PKT PO ×3 (08:27→18:25)
[2017-10-26] MEDS: LEVETIRACETAM 500 MG (PMX) 100 ML IVPB (08:27)
[2017-10-26] MEDS: FOLIC ACID 0.4 MG TAB PO (08:27)
[2017-10-26] MEDS: FAMOTIDINE 20 MG TAB PO ×2 (08:27→20:53)
[2017-10-26 08:28] LABS: WHITE BLOOD COUNT 16.8 10^3/ul (4.8-10.8)
[2017-10-26 08:28] LABS: ABNORMAL IP MESSAGE 1; BASOPHILS % 0.2 % (0.0-2.0); EOSINOPHILS # 0.5 10^3/ul (0.0-0.5); EOSINOPHILS % 2.7 % (0.0-7.0); HEMOGLOBIN 9.2 g/dl (14.0-18.0); LYMPHOCYTES # 1.2 10^3/ul (0.8-2.9); LYMPHOCYTES % 7.1 % (15.0-51.0); MEAN CORPUSCULAR HEMOGLOBIN 32.4 pg (29.0-33.0); MEAN CORPUSCULAR HGB CONC 34.1 g/dl (32.0-37.0); MEAN CORPUSCULAR VOLUME 95.1 fl (82.0-101.0); MEAN PLATELET VOLUME 12.1 fl (7.4-10.4); MONOCYTE # 1.7 10^3/ul (0.3-0.9); MONOCYTES % 10.3 % (0.0-11.0); NEUTROPHIL # 13.3 10^3/ul (1.6-7.5); NEUTROPHILS % 78.9 % (39.0-77.0); PLATELET COUNT 262 10^3/UL (140-415); POSITIVE DIFF @See below; RED BLOOD COUNT 2.84 10^6/ul (4.70-6.10); RED CELL DISTRIBUTION WIDTH 12.8 % (11.5-14.5)
[2017-10-26] MEDS: ISOSORBIDE MONONITRATE(SR)60 MG TAB PO (08:28)
[2017-10-26] MEDS: NIFEdipine (XL) 30 MG TAB PO ×2 (08:28→12:54)
[2017-10-26] MEDS: TICAGRELOR 90 MG TABLET PO ×2 (08:31→21:09)
[2017-10-26] MEDS: ACETAMINOPHEN 325 MG TAB PO (08:37)
[2017-10-26 08:45] LABS: ANION GAP 19 (8-16); BLOOD UREA NITROGEN 50 mg/dl (7-20); CALCIUM 9.2 mg/dl (8.4-10.2); CARBON DIOXIDE 22 mmol/L (21-31); CHLORIDE 91 mmol/L (97-110); CREATININE 9.72 mg/dl (0.61-1.24); GLUCOSE 97 mg/dl (70-220); POTASSIUM 3.6 mmol/L (3.5-5.1); SODIUM 128 mmol/L (135-144)
[2017-10-26] MEDS: RANOLAZINE (SR) 500 MG TAB PO ×2 (09:49→20:51)
[2017-10-26 09:51] LABS: MAGNESIUM 2.2 mg/dl (1.7-2.5)
[2017-10-26 09:51] LABS: PHOSPHORUS 3.8 mg/dl (2.5-4.9)
[2017-10-26] MEDS: BARIUM SULF 2% 450 ML BTL (BERRY SMOOTHIE) PO (11:42)
[2017-10-26] MEDS: LEVETIRACETAM 500 MG TAB PO ×2 (16:43→18:23)
[2017-10-26] MEDS: HEPARIN 1000 UNITS/ML 10 ML INJ CATHETER (18:13)
[2017-10-26] MEDS: EPOETIN 4000 UNITS/1 ML INJ (ESRD) SC (18:27)
[2017-10-26] MEDS: ATORVASTATIN 40 MG TAB PO (20:51)
[2017-10-26] MEDS: INSULIN GLARGINE [LANtus] 3 ML PEN SC (21:10)
[2017-10-27] MEDS: ACCU-CHEK XX (01:44)
[2017-10-27] MEDS: HYDROCODONE/APAP (5/325) TAB PO ×2 (02:52→22:50)
[2017-10-27] MEDS: CIPROFLOXACIN 0.3% 3.5 GM OPH OINT BOTH EYES ×6 (02:53→22:22)
[2017-10-27 05:37] LABS: ADD MAN DIFF? NO
[2017-10-27 05:48] LABS: ABNORMAL IP MESSAGE 1; BASOPHILS % 0.3 % (0.0-2.0); EOSINOPHILS # 0.5 10^3/ul (0.0-0.5); HEMATOCRIT 25.9 % (42.0-52.0); HEMOGLOBIN 9.2 g/dl (14.0-18.0); LYMPHOCYTES # 1.4 10^3/ul (0.8-2.9); LYMPHOCYTES % 8.7 % (15.0-51.0); MEAN CORPUSCULAR HEMOGLOBIN 33.2 pg (29.0-33.0); MEAN CORPUSCULAR HGB CONC 35.5 g/dl (32.0-37.0); MEAN CORPUSCULAR VOLUME 93.5 fl (82.0-101.0); MONOCYTE # 1.8 10^3/ul (0.3-0.9); MONOCYTES % 11.5 % (0.0-11.0); NEUTROPHILS % 75.4 % (39.0-77.0); PLATELET COUNT 266 10^3/UL (140-415); POSITIVE DIFF @See below; RED BLOOD COUNT 2.77 10^6/ul (4.70-6.10); RED CELL DISTRIBUTION WIDTH 12.7 % (11.5-14.5)
[2017-10-27 06:26] LABS: VANCOMYCIN,RANDOM 12.9 ug/ml
[2017-10-27] MEDS: ONDANSETRON 4 MG INJ IV (06:34)
[2017-10-27 07:01] LABS: ANION GAP 18 (8-16); BLOOD UREA NITROGEN 29 mg/dl (7-20); CALCIUM 9.3 mg/dl (8.4-10.2); CARBON DIOXIDE 26 mmol/L (21-31); CHLORIDE 94 mmol/L (97-110); CREATININE 7.03 mg/dl (0.61-1.24); GLUCOSE 112 mg/dl (70-220); POTASSIUM 3.5 mmol/L (3.5-5.1); SODIUM 134 mmol/L (135-144)
[2017-10-27] MEDS: INSULIN ASPART [NOVOLOG] 3 ML PEN SC ×3 (08:02→17:18)
[2017-10-27] MEDS: LEVETIRACETAM 500 MG TAB PO (08:06)
[2017-10-27] MEDS: SEVELAMER CARBONATE 0.8 GM PKT PO ×3 (08:06→17:16)
[2017-10-27] MEDS: FOLIC ACID 0.4 MG TAB PO (08:06)
[2017-10-27] MEDS: RANOLAZINE (SR) 500 MG TAB PO ×2 (08:06→21:19)
[2017-10-27] MEDS: CALCIUM ACETATE 667 MG CAP PO ×3 (08:06→17:16)
[2017-10-27] MEDS: ASPIRIN (EC) 81 MG TAB PO (08:07)
[2017-10-27] MEDS: ISOSORBIDE MONONITRATE(SR)60 MG TAB PO (08:07)
[2017-10-27] MEDS: FAMOTIDINE 20 MG TAB PO ×2 (08:07→21:19)
[2017-10-27] MEDS: NIFEdipine (XL) 30 MG TAB PO (08:07)
[2017-10-27] MEDS: TICAGRELOR 90 MG TABLET PO ×2 (08:08→21:21)
[2017-10-27] MEDS ORDERED: VANCOMYCIN 1 GM 250 ML IVPB (11:00)
[2017-10-27] MEDS: LEVOFLOXACIN 500MG/D5W (PMX) 100 ML IVPB (11:36)
[2017-10-27] MEDS: ATORVASTATIN 40 MG TAB PO (21:19)
[2017-10-27] MEDS: INSULIN GLARGINE [LANtus] 3 ML PEN SC (21:22)
[2017-10-28] MEDS: ACCU-CHEK XX (02:25)
[2017-10-28] MEDS: CIPROFLOXACIN 0.3% 3.5 GM OPH OINT BOTH EYES ×6 (02:26→22:14)
[2017-10-28 06:07] LABS: ADD MAN DIFF? NO
[2017-10-28 06:16] LABS: ABNORMAL IP MESSAGE 1; BASOPHIL # 0.1 10^3/ul (0.0-0.1); BASOPHILS % 0.4 % (0.0-2.0); EOSINOPHILS # 0.7 10^3/ul (0.0-0.5); EOSINOPHILS % 5.3 % (0.0-7.0); HEMATOCRIT 28.7 % (42.0-52.0); LYMPHOCYTES # 1.5 10^3/ul (0.8-2.9); LYMPHOCYTES % 11.1 % (15.0-51.0); MEAN CORPUSCULAR HEMOGLOBIN 32.6 pg (29.0-33.0); MEAN CORPUSCULAR HGB CONC 34.8 g/dl (32.0-37.0); MEAN CORPUSCULAR VOLUME 93.5 fl (82.0-101.0); MEAN PLATELET VOLUME 11.8 fl (7.4-10.4); MONOCYTE # 1.9 10^3/ul (0.3-0.9); MONOCYTES % 13.7 % (0.0-11.0); NEUTROPHIL # 9.5 10^3/ul (1.6-7.5); NEUTROPHILS % 68.1 % (39.0-77.0); PLATELET COUNT 303 10^3/UL (140-415); POSITIVE DIFF @See below; RED BLOOD COUNT 3.07 10^6/ul (4.70-6.10); RED CELL DISTRIBUTION WIDTH 12.8 % (11.5-14.5)
[2017-10-28 06:16] LABS: WHITE BLOOD COUNT 13.9 10^3/ul (4.8-10.8)
[2017-10-28 06:41] LABS: ANION GAP 19 (8-16); BLOOD UREA NITROGEN 41 mg/dl (7-20); CALCIUM 8.9 mg/dl (8.4-10.2); CARBON DIOXIDE 25 mmol/L (21-31); CHLORIDE 93 mmol/L (97-110); CREATININE 9.05 mg/dl (0.61-1.24); GLUCOSE 169 mg/dl (70-220); POTASSIUM 3.6 mmol/L (3.5-5.1); SODIUM 133 mmol/L (135-144)
[2017-10-28] MEDS: SEVELAMER CARBONATE 0.8 GM PKT PO ×3 (08:30→18:44)
[2017-10-28] MEDS: FOLIC ACID 0.4 MG TAB PO (08:30)
[2017-10-28] MEDS: RANOLAZINE (SR) 500 MG TAB PO ×2 (08:31→20:53)
[2017-10-28] MEDS: LEVETIRACETAM 500 MG TAB PO (08:31)
[2017-10-28] MEDS: ASPIRIN (EC) 81 MG TAB PO (08:31)
[2017-10-28] MEDS: CALCIUM ACETATE 667 MG CAP PO ×3 (08:31→18:44)
[2017-10-28] MEDS: ISOSORBIDE MONONITRATE(SR)60 MG TAB PO (08:32)
[2017-10-28] MEDS: NIFEdipine (XL) 30 MG TAB PO (08:33)
[2017-10-28] MEDS: FAMOTIDINE 20 MG TAB PO ×2 (08:33→20:53)
[2017-10-28] MEDS: INSULIN ASPART [NOVOLOG] 3 ML PEN SC ×3 (08:42→18:50)
[2017-10-28] MEDS: TICAGRELOR 90 MG TABLET PO ×2 (08:42→20:56)
[2017-10-28] MEDS ORDERED: METOCLOPRAMIDE 10 MG INJ IV (12:00)
[2017-10-28] MEDS: METOCLOPRAMIDE 10 MG INJ IV ×3 (12:17→23:40)
[2017-10-28] MEDS: EPOETIN 4000 UNITS/1 ML INJ (ESRD) SC (17:00)
[2017-10-28] MEDS: HEPARIN 1000 UNITS/ML 10 ML INJ CATHETER (20:48)
[2017-10-28] MEDS: ATORVASTATIN 40 MG TAB PO (20:53)
[2017-10-28] MEDS: INSULIN GLARGINE [LANtus] 3 ML PEN SC (21:05)
[2017-10-29] MEDS: ACCU-CHEK XX (02:00)
[2017-10-29] MEDS: CIPROFLOXACIN 0.3% 3.5 GM OPH OINT BOTH EYES ×6 (02:57→23:15)
[2017-10-29] MEDS: METOCLOPRAMIDE 10 MG INJ IV ×3 (06:28→17:13)
[2017-10-29] MEDS: RANOLAZINE (SR) 500 MG TAB PO ×2 (08:09→21:25)
[2017-10-29] MEDS: FOLIC ACID 0.4 MG TAB PO (08:09)
[2017-10-29] MEDS: CALCIUM ACETATE 667 MG CAP PO ×3 (08:09→17:12)
[2017-10-29] MEDS: ISOSORBIDE MONONITRATE(SR)60 MG TAB PO (08:10)
[2017-10-29] MEDS: NIFEdipine (XL) 30 MG TAB PO (08:10)
[2017-10-29] MEDS: FAMOTIDINE 20 MG TAB PO (08:11)
[2017-10-29] MEDS: ASPIRIN (EC) 81 MG TAB PO (08:11)
[2017-10-29] MEDS: LEVETIRACETAM 500 MG TAB PO (08:12)
[2017-10-29] MEDS: SEVELAMER CARBONATE 0.8 GM PKT PO ×3 (08:12→17:12)
[2017-10-29] MEDS: TICAGRELOR 90 MG TABLET PO ×2 (08:18→21:39)
[2017-10-29] MEDS: INSULIN ASPART [NOVOLOG] 3 ML PEN SC ×3 (08:29→17:30)
[2017-10-29] MEDS: metroNIDAZOLE 500 MG TAB PO ×3 (09:15→21:26)
[2017-10-29] MEDS: LEVOFLOXACIN 500MG/D5W (PMX) 100 ML IVPB (11:35)
[2017-10-29 16:37] LABS: ADD MAN DIFF? NO
[2017-10-29 16:40] LABS: WHITE BLOOD COUNT 17.1 10^3/ul (4.8-10.8)
[2017-10-29 16:40] LABS: ABNORMAL IP MESSAGE 1; BASOPHIL # 0.1 10^3/ul (0.0-0.1); BASOPHILS % 0.3 % (0.0-2.0); EOSINOPHILS # 0.4 10^3/ul (0.0-0.5); EOSINOPHILS % 2.4 % (0.0-7.0); HEMATOCRIT 30.6 % (42.0-52.0); HEMOGLOBIN 10.4 g/dl (14.0-18.0); LYMPHOCYTES # 1.3 10^3/ul (0.8-2.9); LYMPHOCYTES % 7.6 % (15.0-51.0); MEAN CORPUSCULAR HEMOGLOBIN 31.9 pg (29.0-33.0); MEAN CORPUSCULAR VOLUME 93.9 fl (82.0-101.0); MEAN PLATELET VOLUME 11.4 fl (7.4-10.4); MONOCYTE # 2.2 10^3/ul (0.3-0.9); MONOCYTES % 12.8 % (0.0-11.0); NEUTROPHIL # 12.6 10^3/ul (1.6-7.5); PLATELET COUNT 306 10^3/UL (140-415); POSITIVE DIFF @See below; RED BLOOD COUNT 3.26 10^6/ul (4.70-6.10); RED CELL DISTRIBUTION WIDTH 12.8 % (11.5-14.5)
[2017-10-29 17:03] LABS: ANION GAP 16 (8-16); BLOOD UREA NITROGEN 30 mg/dl (7-20); CALCIUM 9.6 mg/dl (8.4-10.2); CARBON DIOXIDE 26 mmol/L (21-31); CHLORIDE 97 mmol/L (97-110); CREATININE 7.14 mg/dl (0.61-1.24); GLUCOSE 162 mg/dl (70-220); POTASSIUM 3.5 mmol/L (3.5-5.1); SODIUM 135 mmol/L (135-144)
[2017-10-29 17:03] LABS: MAGNESIUM 2.2 mg/dl (1.7-2.5)
[2017-10-29] MEDS: ATORVASTATIN 40 MG TAB PO (21:25)
[2017-10-29] MEDS: INSULIN GLARGINE [LANtus] 3 ML PEN SC (21:40)
[2017-10-30] MEDS: METOCLOPRAMIDE 10 MG INJ IV ×4 (01:15→18:00)
[2017-10-30] MEDS: ACCU-CHEK XX (02:30)
[2017-10-30] MEDS: CIPROFLOXACIN 0.3% 3.5 GM OPH OINT BOTH EYES ×6 (03:28→22:46)
[2017-10-30] MEDS: metroNIDAZOLE 500 MG TAB PO ×3 (06:00→22:45)
[2017-10-30 07:37] LABS: ADD MAN DIFF? NO
[2017-10-30 07:42] LABS: WHITE BLOOD COUNT 14.9 10^3/ul (4.8-10.8)
[2017-10-30 07:42] LABS: ABNORMAL IP MESSAGE 1; BASOPHIL # 0.1 10^3/ul (0.0-0.1); BASOPHILS % 0.5 % (0.0-2.0); EOSINOPHILS # 0.7 10^3/ul (0.0-0.5); EOSINOPHILS % 4.4 % (0.0-7.0); HEMATOCRIT 31.6 % (42.0-52.0); HEMOGLOBIN 10.7 g/dl (14.0-18.0); LYMPHOCYTES # 1.7 10^3/ul (0.8-2.9); LYMPHOCYTES % 11.4 % (15.0-51.0); MEAN CORPUSCULAR HGB CONC 33.9 g/dl (32.0-37.0); MEAN CORPUSCULAR VOLUME 94.6 fl (82.0-101.0); MEAN PLATELET VOLUME 11.3 fl (7.4-10.4); MONOCYTE # 1.8 10^3/ul (0.3-0.9); MONOCYTES % 11.9 % (0.0-11.0); NEUTROPHIL # 9.9 10^3/ul (1.6-7.5); NEUTROPHILS % 66.9 % (39.0-77.0); PLATELET COUNT 340 10^3/UL (140-415); POSITIVE DIFF @See below; RED BLOOD COUNT 3.34 10^6/ul (4.70-6.10); RED CELL DISTRIBUTION WIDTH 12.9 % (11.5-14.5)
[2017-10-30] MEDS: SEVELAMER CARBONATE 0.8 GM PKT PO ×3 (07:56→17:50)
[2017-10-30] MEDS: CALCIUM ACETATE 667 MG CAP PO ×3 (07:56→17:51)
[2017-10-30 08:02] LABS: MAGNESIUM 2.2 mg/dl (1.7-2.5)
[2017-10-30 08:04] LABS: ANION GAP 19 (8-16); BLOOD UREA NITROGEN 35 mg/dl (7-20); CALCIUM 9.3 mg/dl (8.4-10.2); CARBON DIOXIDE 24 mmol/L (21-31); CHLORIDE 100 mmol/L (97-110); CREATININE 8.34 mg/dl (0.61-1.24); GLUCOSE 106 mg/dl (70-220); POTASSIUM 3.7 mmol/L (3.5-5.1); SODIUM 139 mmol/L (135-144)
[2017-10-30] MEDS: INSULIN ASPART [NOVOLOG] 3 ML PEN SC ×3 (08:36→18:00)
[2017-10-30] MEDS: RANOLAZINE (SR) 500 MG TAB PO ×2 (08:39→20:28)
[2017-10-30] MEDS: ASPIRIN (EC) 81 MG TAB PO (08:39)
[2017-10-30] MEDS: FOLIC ACID 0.4 MG TAB PO (08:39)
[2017-10-30] MEDS: LEVETIRACETAM 500 MG TAB PO (08:39)
[2017-10-30] MEDS: FAMOTIDINE 20 MG TAB PO (08:40)
[2017-10-30] MEDS: TICAGRELOR 90 MG TABLET PO ×2 (08:41→20:27)
[2017-10-30] MEDS: ISOSORBIDE MONONITRATE(SR)60 MG TAB PO (09:00)
[2017-10-30] MEDS: NIFEdipine (XL) 30 MG TAB PO (09:00)
[2017-10-30] MEDS ORDERED: EPOETIN 10000 UNITS/1 ML INJ (ESRD) SC (17:00)
[2017-10-30] MEDS: EPOETIN 3000 UNITS/1 ML INJ (ESRD) SC (17:50)
[2017-10-30] MEDS: HEPARIN 1000 UNITS/ML 10 ML INJ CATHETER (18:21)
[2017-10-30] MEDS: ATORVASTATIN 40 MG TAB PO (20:13)
[2017-10-30] MEDS: INSULIN GLARGINE [LANtus] 3 ML PEN SC (20:28)
[2017-10-31] MEDS: ACCU-CHEK XX (02:49)
[2017-10-31] MEDS: CIPROFLOXACIN 0.3% 3.5 GM OPH OINT BOTH EYES ×6 (03:00→23:00)
[2017-10-31] MEDS: metroNIDAZOLE 500 MG TAB PO ×3 (06:24→22:36)
[2017-10-31] MEDS: METOCLOPRAMIDE 10 MG INJ IV ×4 (06:24→17:41)
[2017-10-31] MEDS: SEVELAMER CARBONATE 0.8 GM PKT PO ×3 (08:17→17:31)
[2017-10-31] MEDS: CALCIUM ACETATE 667 MG CAP PO ×3 (08:18→17:32)
[2017-10-31] MEDS: INSULIN ASPART [NOVOLOG] 3 ML PEN SC ×3 (08:42→17:55)
[2017-10-31] MEDS: ASPIRIN (EC) 81 MG TAB PO (08:48)
[2017-10-31] MEDS: FAMOTIDINE 20 MG TAB PO (08:48)
[2017-10-31] MEDS: RANOLAZINE (SR) 500 MG TAB PO ×2 (08:48→21:09)
[2017-10-31] MEDS: FOLIC ACID 0.4 MG TAB PO (08:48)
[2017-10-31] MEDS: LEVETIRACETAM 500 MG TAB PO (08:48)
[2017-10-31] MEDS: ISOSORBIDE MONONITRATE(SR)60 MG TAB PO (08:48)
[2017-10-31] MEDS: NIFEdipine (XL) 30 MG TAB PO (08:48)
[2017-10-31] MEDS: TICAGRELOR 90 MG TABLET PO ×2 (08:50→21:14)
[2017-10-31] MEDS: ATORVASTATIN 40 MG TAB PO (21:08)
[2017-10-31] MEDS: INSULIN GLARGINE [LANtus] 3 ML PEN SC (21:15)
[2017-11-01] MEDS: ACCU-CHEK XX (02:50)
[2017-11-01] MEDS: CIPROFLOXACIN 0.3% 3.5 GM OPH OINT BOTH EYES ×6 (03:17→23:00)
[2017-11-01] MEDS: METOCLOPRAMIDE 10 MG INJ IV ×4 (06:00→17:18)
[2017-11-01] MEDS: metroNIDAZOLE 500 MG TAB PO ×3 (06:28→22:17)
[2017-11-01] MEDS: FOLIC ACID 0.4 MG TAB PO (08:23)
[2017-11-01] MEDS: SEVELAMER CARBONATE 0.8 GM PKT PO ×3 (08:24→17:19)
[2017-11-01] MEDS: RANOLAZINE (SR) 500 MG TAB PO ×2 (08:24→20:52)
[2017-11-01] MEDS: ASPIRIN (EC) 81 MG TAB PO (08:24)
[2017-11-01] MEDS: CALCIUM ACETATE 667 MG CAP PO ×3 (08:24→17:18)
[2017-11-01] MEDS: FAMOTIDINE 20 MG TAB PO (08:25)
[2017-11-01] MEDS: ISOSORBIDE MONONITRATE(SR)60 MG TAB PO (08:26)
[2017-11-01] MEDS: NIFEdipine (XL) 30 MG TAB PO (08:26)
[2017-11-01] MEDS: INSULIN ASPART [NOVOLOG] 3 ML PEN SC ×3 (08:29→17:57)
[2017-11-01] MEDS: TICAGRELOR 90 MG TABLET PO ×2 (08:35→20:59)
[2017-11-01] MEDS: LEVETIRACETAM 500 MG TAB PO (08:41)
[2017-11-01] MEDS: ATORVASTATIN 40 MG TAB PO (20:52)
[2017-11-01] MEDS: INSULIN GLARGINE [LANtus] 3 ML PEN SC (20:59)
[2017-11-02] MEDS: CIPROFLOXACIN 0.3% 3.5 GM OPH OINT BOTH EYES ×6 (02:21→23:00)
[2017-11-02] MEDS: ACCU-CHEK XX (02:21)
[2017-11-02] MEDS: METOCLOPRAMIDE 10 MG INJ IV ×3 (06:00→11:36)
[2017-11-02] MEDS: metroNIDAZOLE 500 MG TAB PO (06:09)
[2017-11-02] MEDS: FAMOTIDINE 20 MG TAB PO (08:23)
[2017-11-02] MEDS: ASPIRIN (EC) 81 MG TAB PO (08:23)
[2017-11-02] MEDS: FOLIC ACID 0.4 MG TAB PO (08:24)
[2017-11-02] MEDS: CALCIUM ACETATE 667 MG CAP PO ×3 (08:24→17:24)
[2017-11-02] MEDS: LEVETIRACETAM 500 MG TAB PO (08:24)
[2017-11-02] MEDS: RANOLAZINE (SR) 500 MG TAB PO ×2 (08:25→20:37)
[2017-11-02] MEDS: SEVELAMER CARBONATE 0.8 GM PKT PO ×3 (08:26→17:24)
[2017-11-02] MEDS: INSULIN ASPART [NOVOLOG] 3 ML PEN SC ×3 (08:28→17:27)
[2017-11-02] MEDS: ISOSORBIDE MONONITRATE(SR)60 MG TAB PO (08:32)
[2017-11-02] MEDS: TICAGRELOR 90 MG TABLET PO ×2 (08:37→21:00)
[2017-11-02] MEDS: NIFEdipine (XL) 30 MG TAB PO (09:00)
[2017-11-02] MEDS: ONDANSETRON 4 MG INJ IV (10:26)
[2017-11-02 14:05] LABS: ADD MAN DIFF? NO
[2017-11-02 14:09] LABS: BASOPHIL # 0.1 10^3/ul (0.0-0.1); BASOPHILS % 0.5 % (0.0-2.0); EOSINOPHILS # 0.3 10^3/ul (0.0-0.5); EOSINOPHILS % 2.3 % (0.0-7.0); HEMATOCRIT 30.4 % (42.0-52.0); HEMOGLOBIN 10.1 g/dl (14.0-18.0); LYMPHOCYTES # 1.4 10^3/ul (0.8-2.9); LYMPHOCYTES % 9.9 % (15.0-51.0); MEAN CORPUSCULAR HEMOGLOBIN 31.8 pg (29.0-33.0); MEAN CORPUSCULAR HGB CONC 33.2 g/dl (32.0-37.0); MEAN CORPUSCULAR VOLUME 95.6 fl (82.0-101.0); MEAN PLATELET VOLUME 10.9 fl (7.4-10.4); MONOCYTE # 0.9 10^3/ul (0.3-0.9); MONOCYTES % 6.3 % (0.0-11.0); NEUTROPHILS % 77.5 % (39.0-77.0); PLATELET COUNT 336 10^3/UL (140-415); RED BLOOD COUNT 3.18 10^6/ul (4.70-6.10); RED CELL DISTRIBUTION WIDTH 13.1 % (11.5-14.5)
[2017-11-02 14:09] LABS: WHITE BLOOD COUNT 14.2 10^3/ul (4.8-10.8)
[2017-11-02 14:32] LABS: ANION GAP 16 (8-16); BLOOD UREA NITROGEN 37 mg/dl (7-20); CALCIUM 9.8 mg/dl (8.4-10.2); CARBON DIOXIDE 28 mmol/L (21-31); CHLORIDE 99 mmol/L (97-110); CREATININE 9.18 mg/dl (0.61-1.24); GLUCOSE 120 mg/dl (70-220); MAGNESIUM 2.1 mg/dl (1.7-2.5); PHOSPHORUS 2.7 mg/dl (2.5-4.9); POTASSIUM 3.8 mmol/L (3.5-5.1); SODIUM 139 mmol/L (135-144)
[2017-11-02] MEDS ORDERED: METOCLOPRAMIDE 10 MG INJ IV (15:00)
[2017-11-02] MEDS: HEPARIN 1000 UNITS/ML 10 ML INJ CATHETER (16:35)
[2017-11-02] MEDS: VANCOMYCIN HCL 250 MG/5ML POSYG PO ×3 (17:24→20:48)
[2017-11-02] MEDS: ATORVASTATIN 40 MG TAB PO (20:37)
[2017-11-02] MEDS: EPOETIN 3000 UNITS/1 ML INJ (ESRD) SC (20:47)
[2017-11-02] MEDS: INSULIN GLARGINE [LANtus] 3 ML PEN SC (20:48)
[2017-11-03] MEDS: VANCOMYCIN HCL 250 MG/5ML POSYG PO ×4 (00:36→17:25)
[2017-11-03] MEDS: ACCU-CHEK XX (02:00)
[2017-11-03] MEDS: CIPROFLOXACIN 0.3% 3.5 GM OPH OINT BOTH EYES ×5 (03:00→20:56)
[2017-11-03] MEDS: INSULIN ASPART [NOVOLOG] 3 ML PEN SC ×5 (07:55→20:56)
[2017-11-03 08:03] LABS: ADD MAN DIFF? NO
[2017-11-03 08:07] LABS: WHITE BLOOD COUNT 13.7 10^3/ul (4.8-10.8)
[2017-11-03 08:07] LABS: BASOPHIL # 0.1 10^3/ul (0.0-0.1); BASOPHILS % 0.4 % (0.0-2.0); EOSINOPHILS # 0.4 10^3/ul (0.0-0.5); EOSINOPHILS % 2.9 % (0.0-7.0); HEMATOCRIT 34.3 % (42.0-52.0); HEMOGLOBIN 11.2 g/dl (14.0-18.0); LYMPHOCYTES # 1.7 10^3/ul (0.8-2.9); LYMPHOCYTES % 12.3 % (15.0-51.0); MEAN CORPUSCULAR HEMOGLOBIN 31.5 pg (29.0-33.0); MEAN CORPUSCULAR HGB CONC 32.7 g/dl (32.0-37.0); MEAN CORPUSCULAR VOLUME 96.3 fl (82.0-101.0); MEAN PLATELET VOLUME 10.6 fl (7.4-10.4); MONOCYTE # 1.2 10^3/ul (0.3-0.9); NEUTROPHIL # 9.9 10^3/ul (1.6-7.5); NEUTROPHILS % 72.1 % (39.0-77.0); PLATELET COUNT 347 10^3/UL (140-415); RED BLOOD COUNT 3.56 10^6/ul (4.70-6.10); RED CELL DISTRIBUTION WIDTH 13.1 % (11.5-14.5)
[2017-11-03] MEDS: LEVETIRACETAM 500 MG TAB PO (08:10)
[2017-11-03] MEDS: NIFEdipine (XL) 30 MG TAB PO (08:11)
[2017-11-03] MEDS: CALCIUM ACETATE 667 MG CAP PO ×3 (08:11→17:24)
[2017-11-03] MEDS: ISOSORBIDE MONONITRATE(SR)60 MG TAB PO (08:12)
[2017-11-03] MEDS: FAMOTIDINE 20 MG TAB PO (08:12)
[2017-11-03] MEDS: FOLIC ACID 0.4 MG TAB PO (08:13)
[2017-11-03] MEDS: RANOLAZINE (SR) 500 MG TAB PO ×2 (08:13→20:56)
[2017-11-03] MEDS: SEVELAMER CARBONATE 0.8 GM PKT PO ×3 (08:13→17:25)
[2017-11-03] MEDS: ASPIRIN (EC) 81 MG TAB PO (08:13)
[2017-11-03] MEDS: TICAGRELOR 90 MG TABLET PO ×2 (08:19→20:49)
[2017-11-03] MEDS: ONDANSETRON 4 MG INJ IV (08:25)
[2017-11-03 08:26] LABS: ANION GAP 13 (8-16); BLOOD UREA NITROGEN 23 mg/dl (7-20); CARBON DIOXIDE 28 mmol/L (21-31); CHLORIDE 102 mmol/L (97-110); CREATININE 6.77 mg/dl (0.61-1.24); GLUCOSE 102 mg/dl (70-220); POTASSIUM 4.3 mmol/L (3.5-5.1); SODIUM 139 mmol/L (135-144)
[2017-11-03] MEDS: ATORVASTATIN 40 MG TAB PO (20:56)
[2017-11-03] MEDS: INSULIN GLARGINE [LANtus] 3 ML PEN SC (20:59)
== END 2017-11-03 22:04 | DRG 280 ==
LOC: TEL 22:01 → E/R 21:40 → TEL 10-29 14:25
PROVIDERS: Hospitalist
PROC: 5A1D70Z Performance of Urinary Filtration, Intermittent, Less than 6 Hours Per Day (ICD-10-PCS; principal; 2017-10-21)
DX: I13.2 Hypertensive heart and chronic kidney disease with heart failure and with stage 5 chronic kidney disease, or end stage renal disease (principal); N18.6 End stage renal disease; I21.4 Non-ST elevation (NSTEMI) myocardial infarction; I50.23 Acute on chronic systolic (congestive) heart failure; A04.72 Enterocolitis due to Clostridium difficile, not specified as recurrent; N39.0 Urinary tract infection, site not specified; I25.10 Atherosclerotic heart disease of native coronary artery without angina pectoris; E11.42 Type 2 diabetes mellitus with diabetic polyneuropathy; Z79.4 Long term (current) use of insulin; E11.22 Type 2 diabetes mellitus with diabetic chronic kidney disease; E78.5 Hyperlipidemia, unspecified; D63.1 Anemia in chronic kidney disease; I16.0 Hypertensive urgency; Z99.2 Dependence on renal dialysis; Z95.5 Presence of coronary angioplasty implant and graft; Z95.1 Presence of aortocoronary bypass graft
CPT/HCPCS: 36415; 70450; 71045; 71250; 72020; 74176; 80048; 80053; 80202; 80307; 81001; 82140; 82550; 82553; 82962; 83540; 83735; 84100; 84145; 84484; 85025; 87040; 87075; 87086; 87340; 90935; 93005; 93880; 93971; 95819; 96374; 96375; 97110; 97116; 97162; 97165; 97530; 97535; 99285-25

== ENCOUNTER 2017-11-03 22:32 | Inpatient (IN) | payer MEDICARE, OTHER ==
[2017-11-04] MEDS: ACCUCHECK AT 2AM (Patients on SS coverage) XX (02:00)
[2017-11-04] MEDS ORDERED: morphine 2 MG INJ IV (02:00)
[2017-11-04] MEDS ORDERED: GLUCOSE GEL 15 GRAM TUBE BUCCAL (02:00)
[2017-11-04] MEDS ORDERED: GUAIFENESIN/DM 5ML CUP PO (02:00)
[2017-11-04] MEDS ORDERED: LORAZEPAM 2 MG INJ IV (02:00)
[2017-11-04] MEDS ORDERED: GLUCAGON 1 MG INJ IM (02:00)
[2017-11-04] MEDS ORDERED: METOCLOPRAMIDE 10 MG INJ IV (02:00)
[2017-11-04] MEDS ORDERED: GLUCOSE GEL 15 GRAM TUBE PO ×2 (02:00)
[2017-11-04] MEDS ORDERED: DEXTROSE 50% 50 ML SYRINGE IV ×2 (02:00)
[2017-11-04] MEDS ORDERED: ONDANSETRON 4 MG INJ IV (02:00)
[2017-11-04] MEDS ORDERED: BISACODYL (EC) 5 MG TAB PO (02:30)
[2017-11-04] MEDS ORDERED: DOCUSATE SODIUM 100 MG CAP PO (02:30)
[2017-11-04] MEDS: CIPROFLOXACIN 0.3% 3.5 GM OPH OINT BOTH EYES ×5 (05:47→20:37)
[2017-11-04] MEDS: VANCOMYCIN HCL 250 MG/5ML POSYG PO ×4 (05:48→23:08)
[2017-11-04] MEDS: Insulin NOVOLOG SS MILD Algorithm (SS with meals and bedtime) SC ×4 (07:35→20:36)
[2017-11-04] MEDS: NOVOLOG PEN INSULIN ASPART (BOLUS with meals) SC ×3 (07:43→17:40)
[2017-11-04] MEDS: CALCIUM ACETATE 667 MG CAP PO ×3 (07:44→17:42)
[2017-11-04] MEDS: SEVELAMER CARBONATE 0.8 GM PKT PO ×3 (07:44→17:35)
[2017-11-04 08:46] LABS: ADD MAN DIFF? NO
[2017-11-04 08:47] LABS: WHITE BLOOD COUNT 10.8 10^3/ul (4.8-10.8)
[2017-11-04 08:47] LABS: BASOPHIL # 0.1 10^3/ul (0.0-0.1); BASOPHILS % 0.6 % (0.0-2.0); EOSINOPHILS # 0.4 10^3/ul (0.0-0.5); EOSINOPHILS % 3.4 % (0.0-7.0); HEMATOCRIT 33.4 % (42.0-52.0); HEMOGLOBIN 11.2 g/dl (14.0-18.0); LYMPHOCYTES # 1.7 10^3/ul (0.8-2.9); LYMPHOCYTES % 15.5 % (15.0-51.0); MEAN CORPUSCULAR HEMOGLOBIN 32.3 pg (29.0-33.0); MEAN CORPUSCULAR HGB CONC 33.5 g/dl (32.0-37.0); MEAN CORPUSCULAR VOLUME 96.3 fl (82.0-101.0); MEAN PLATELET VOLUME 10.4 fl (7.4-10.4); MONOCYTE # 1.1 10^3/ul (0.3-0.9); NEUTROPHIL # 7.3 10^3/ul (1.6-7.5); PLATELET COUNT 344 10^3/UL (140-415); RED BLOOD COUNT 3.47 10^6/ul (4.70-6.10); RED CELL DISTRIBUTION WIDTH 12.9 % (11.5-14.5)
[2017-11-04] MEDS: ISOSORBIDE MONONITRATE(SR)60 MG TAB PO (08:49)
[2017-11-04] MEDS: RANOLAZINE (SR) 500 MG TAB PO ×2 (08:49→20:35)
[2017-11-04] MEDS: LEVETIRACETAM 500 MG TAB PO ×2 (08:49→18:46)
[2017-11-04] MEDS: NIFEdipine (XL) 30 MG TAB PO (08:49)
[2017-11-04] MEDS: ASPIRIN (EC) 81 MG TAB PO (08:50)
[2017-11-04] MEDS: FAMOTIDINE 20 MG TAB PO (08:50)
[2017-11-04] MEDS: FOLIC ACID 0.4 MG TAB PO (08:50)
[2017-11-04] MEDS: TICAGRELOR 90 MG TABLET PO ×2 (08:51→20:42)
[2017-11-04 09:14] LABS: ALANINE AMINOTRANSFERASE 25 IU/L (13-69); ALBUMIN 3.4 g/dl (3.3-4.9); ALBUMIN/GLOBULIN RATIO 1.17; ALKALINE PHOSPHATASE 74 IU/L (42-121); ANION GAP 15 (8-16); ASPARTATE AMINO TRANSFERASE 20 IU/L (15-46); BILIRUBIN,INDIRECT 0.3 mg/dl (0-1.1); BILIRUBIN,TOTAL 0.3 mg/dl (0.2-1.3); BLOOD UREA NITROGEN 34 mg/dl (7-20); CARBON DIOXIDE 28 mmol/L (21-31); CHLORIDE 99 mmol/L (97-110); CREATININE 8.65 mg/dl (0.61-1.24); GLUCOSE 88 mg/dl (70-220); POTASSIUM 4.2 mmol/L (3.5-5.1); SODIUM 138 mmol/L (135-144); TOTAL PROTEIN 6.3 g/dl (6.1-8.1)
[2017-11-04] MEDS: ONDANSETRON 4 MG TAB PO (14:19)
[2017-11-04] MEDS: EPOETIN 3000 UNITS/1 ML INJ (ESRD) SC (17:00)
[2017-11-04] MEDS: ATORVASTATIN 40 MG TAB PO (20:35)
[2017-11-04] MEDS: BENAZEPRIL 10 MG TAB PO (20:36)
[2017-11-04] MEDS: INSULIN GLARGINE [LANtus] 3 ML PEN SC (20:43)
[2017-11-05] MEDS: CIPROFLOXACIN 0.3% 3.5 GM OPH OINT BOTH EYES ×6 (01:00→22:27)
[2017-11-05 01:22] LABS: ADD UMIC YES; UR ASCORBIC ACID NEGATIVE (NEGATIVE); UR BACTERIA FEW /HPF (NONE SEEN); UR BILIRUBIN (Dip) NEGATIVE (NEGATIVE); UR BLOOD (Dip) NEGATIVE (NEGATIVE); UR CLARITY CLEAR (CLEAR); UR COLOR YELLOW (YELLOW); UR GLUCOSE (Dip) 1+ mg/dL (NEGATIVE); UR KETONES (Dip) NEGATIVE (NEGATIVE); UR LEUKOCYTE ESTERASE (Dip) NEGATIVE Leu/ul (NEGATIVE); UR NITRITE (Dip) NEGATIVE (NEGATIVE); UR RBC 4 /HPF (0-5); UR SPECIFIC GRAVITY (Dip) 1.013 (1.003-1.030); UR SQUAMOUS EPITHELIAL CELL FEW /HPF (FEW); UR TOTAL PROTEIN (Dip) 3+ mg/dl (NEGATIVE); UR UROBILINOGEN (Dip) NEGATIVE (NEGATIVE); UR WBC 7 /HPF (0-5)
[2017-11-05] MEDS: ACCUCHECK AT 2AM (Patients on SS coverage) XX (02:00)
[2017-11-05] MEDS: VANCOMYCIN HCL 250 MG/5ML POSYG PO ×3 (05:57→18:00)
[2017-11-05] MEDS: Insulin NOVOLOG SS MILD Algorithm (SS with meals and bedtime) SC ×4 (07:34→22:00)
[2017-11-05] MEDS: SEVELAMER CARBONATE 0.8 GM PKT PO ×3 (07:34→17:35)
[2017-11-05] MEDS: CALCIUM ACETATE 667 MG CAP PO ×3 (07:35→17:35)
[2017-11-05] MEDS: NOVOLOG PEN INSULIN ASPART (BOLUS with meals) SC ×3 (07:36→17:58)
[2017-11-05] MEDS: FOLIC ACID 0.4 MG TAB PO (08:41)
[2017-11-05] MEDS: RANOLAZINE (SR) 500 MG TAB PO ×2 (08:41→22:23)
[2017-11-05] MEDS: BENAZEPRIL 10 MG TAB PO ×2 (08:41→22:22)
[2017-11-05] MEDS: LEVETIRACETAM 500 MG TAB PO (08:41)
[2017-11-05] MEDS: FAMOTIDINE 20 MG TAB PO (08:41)
[2017-11-05] MEDS: TICAGRELOR 90 MG TABLET PO ×2 (08:42→22:26)
[2017-11-05] MEDS: ASPIRIN (EC) 81 MG TAB PO (08:42)
[2017-11-05] MEDS: ISOSORBIDE MONONITRATE(SR)60 MG TAB PO (08:42)
[2017-11-05] MEDS: ATORVASTATIN 40 MG TAB PO (22:22)
[2017-11-05] MEDS: INSULIN GLARGINE [LANtus] 3 ML PEN SC (22:27)
[2017-11-06] MEDS: CIPROFLOXACIN 0.3% 3.5 GM OPH OINT BOTH EYES ×6 (00:34→21:11)
[2017-11-06] MEDS: ACCUCHECK AT 2AM (Patients on SS coverage) XX (02:00)
[2017-11-06] MEDS: VANCOMYCIN HCL 250 MG/5ML POSYG PO ×4 (06:00→18:00)
[2017-11-06] MEDS: NOVOLOG PEN INSULIN ASPART (BOLUS with meals) SC ×3 (07:35→17:35)
[2017-11-06] MEDS: CALCIUM ACETATE 667 MG CAP PO ×3 (07:35→17:35)
[2017-11-06] MEDS: SEVELAMER CARBONATE 0.8 GM PKT PO ×3 (07:35→17:35)
[2017-11-06] MEDS: Insulin NOVOLOG SS MILD Algorithm (SS with meals and bedtime) SC ×4 (07:35→21:00)
[2017-11-06] MEDS: RANOLAZINE (SR) 500 MG TAB PO ×2 (09:25→21:09)
[2017-11-06] MEDS: FOLIC ACID 0.4 MG TAB PO (09:25)
[2017-11-06] MEDS: LEVETIRACETAM 500 MG TAB PO ×2 (09:25→21:09)
[2017-11-06] MEDS: ASPIRIN (EC) 81 MG TAB PO (09:25)
[2017-11-06] MEDS: TICAGRELOR 90 MG TABLET PO ×2 (09:26→21:12)
[2017-11-06] MEDS: BENAZEPRIL 10 MG TAB PO ×2 (09:26→21:11)
[2017-11-06] MEDS: FAMOTIDINE 20 MG TAB PO (09:26)
[2017-11-06] MEDS: ISOSORBIDE MONONITRATE(SR)60 MG TAB PO (09:26)
[2017-11-06] MEDS: METOCLOPRAMIDE 5 MG TAB PO ×3 (09:27→17:05)
[2017-11-06] MEDS: HEPARIN 1000 UNITS/ML 10 ML INJ CATHETER (19:42)
[2017-11-06] MEDS: ATORVASTATIN 40 MG TAB PO (21:09)
[2017-11-06] MEDS: INSULIN GLARGINE [LANtus] 3 ML PEN SC (21:13)
[2017-11-07] MEDS: VANCOMYCIN HCL 250 MG/5ML POSYG PO ×4 (00:03→17:51)
[2017-11-07] MEDS: HYDROCODONE/APAP (5/325) TAB PO (01:18)
[2017-11-07] MEDS: CIPROFLOXACIN 0.3% 3.5 GM OPH OINT BOTH EYES ×6 (01:19→21:04)
[2017-11-07] MEDS: ACCUCHECK AT 2AM (Patients on SS coverage) XX (02:00)
[2017-11-07] MEDS: Insulin NOVOLOG SS MILD Algorithm (SS with meals and bedtime) SC ×4 (07:35→21:00)
[2017-11-07] MEDS: NOVOLOG PEN INSULIN ASPART (BOLUS with meals) SC ×3 (07:35→17:30)
[2017-11-07] MEDS: CALCIUM ACETATE 667 MG CAP PO ×3 (07:43→17:51)
[2017-11-07] MEDS: METOCLOPRAMIDE 5 MG TAB PO ×3 (07:43→17:51)
[2017-11-07] MEDS: SEVELAMER CARBONATE 0.8 GM PKT PO ×3 (07:43→17:52)
[2017-11-07] MEDS: FOLIC ACID 0.4 MG TAB PO (08:58)
[2017-11-07] MEDS: RANOLAZINE (SR) 500 MG TAB PO ×2 (08:58→20:19)
[2017-11-07] MEDS: ASPIRIN (EC) 81 MG TAB PO (08:59)
[2017-11-07] MEDS: ISOSORBIDE MONONITRATE(SR)60 MG TAB PO (08:59)
[2017-11-07] MEDS: FAMOTIDINE 20 MG TAB PO (08:59)
[2017-11-07] MEDS: LEVETIRACETAM 500 MG TAB PO (08:59)
[2017-11-07] MEDS: BENAZEPRIL 10 MG TAB PO ×2 (09:00→20:21)
[2017-11-07] MEDS: TICAGRELOR 90 MG TABLET PO ×2 (09:00→20:19)
[2017-11-07] MEDS: ATORVASTATIN 40 MG TAB PO (20:19)
[2017-11-07] MEDS: INSULIN GLARGINE [LANtus] 3 ML PEN SC (20:20)
[2017-11-08] MEDS: CIPROFLOXACIN 0.3% 3.5 GM OPH OINT BOTH EYES ×6 (01:00→20:24)
[2017-11-08] MEDS: ACCUCHECK AT 2AM (Patients on SS coverage) XX (02:00)
[2017-11-08] MEDS: VANCOMYCIN HCL 250 MG/5ML POSYG PO ×4 (06:34→18:00)
[2017-11-08] MEDS: METOCLOPRAMIDE 5 MG TAB PO ×4 (07:05→16:36)
[2017-11-08] MEDS: SEVELAMER CARBONATE 0.8 GM PKT PO ×4 (07:35→17:35)
[2017-11-08] MEDS: Insulin NOVOLOG SS MILD Algorithm (SS with meals and bedtime) SC ×4 (07:35→20:33)
[2017-11-08] MEDS: CALCIUM ACETATE 667 MG CAP PO ×4 (07:35→17:35)
[2017-11-08] MEDS: NOVOLOG PEN INSULIN ASPART (BOLUS with meals) SC ×3 (07:35→17:35)
[2017-11-08] MEDS: LEVETIRACETAM 500 MG TAB PO (09:00)
[2017-11-08] MEDS: FAMOTIDINE 20 MG TAB PO (09:00)
[2017-11-08] MEDS: RANOLAZINE (SR) 500 MG TAB PO ×2 (09:00→20:22)
[2017-11-08] MEDS: BENAZEPRIL 10 MG TAB PO ×3 (09:00→20:23)
[2017-11-08] MEDS: TICAGRELOR 90 MG TABLET PO ×2 (09:00→20:31)
[2017-11-08] MEDS: ISOSORBIDE MONONITRATE(SR)60 MG TAB PO (09:00)
[2017-11-08] MEDS: FOLIC ACID 0.4 MG TAB PO (09:00)
[2017-11-08] MEDS: ASPIRIN (EC) 81 MG TAB PO (09:00)
[2017-11-08] MEDS: NIFEdipine (XL) 30 MG TAB PO (14:35)
[2017-11-08] MEDS: ATORVASTATIN 40 MG TAB PO (20:22)
[2017-11-08] MEDS: INSULIN GLARGINE [LANtus] 3 ML PEN SC (20:32)
[2017-11-09] MEDS: VANCOMYCIN HCL 250 MG/5ML POSYG PO ×4 (00:36→19:00)
[2017-11-09] MEDS: CIPROFLOXACIN 0.3% 3.5 GM OPH OINT BOTH EYES ×6 (01:00→22:14)
[2017-11-09] MEDS: ACCUCHECK AT 2AM (Patients on SS coverage) XX (02:00)
[2017-11-09] MEDS: NOVOLOG PEN INSULIN ASPART (BOLUS with meals) SC ×3 (07:35→17:35)
[2017-11-09] MEDS: Insulin NOVOLOG SS MILD Algorithm (SS with meals and bedtime) SC ×4 (07:35→21:00)
[2017-11-09] MEDS: FOLIC ACID 0.4 MG TAB PO (09:37)
[2017-11-09] MEDS: RANOLAZINE (SR) 500 MG TAB PO ×2 (09:37→22:12)
[2017-11-09] MEDS: ISOSORBIDE MONONITRATE(SR)60 MG TAB PO (09:37)
[2017-11-09] MEDS: FAMOTIDINE 20 MG TAB PO (09:37)
[2017-11-09] MEDS: ASPIRIN (EC) 81 MG TAB PO (09:38)
[2017-11-09] MEDS: BENAZEPRIL 10 MG TAB PO ×2 (09:38→22:13)
[2017-11-09] MEDS: LEVETIRACETAM 500 MG TAB PO (09:38)
[2017-11-09] MEDS: NIFEdipine (XL) 30 MG TAB PO ×2 (09:38→22:12)
[2017-11-09] MEDS: TICAGRELOR 90 MG TABLET PO ×2 (09:39→22:21)
[2017-11-09] MEDS: SEVELAMER CARBONATE 0.8 GM PKT PO ×3 (09:39→17:35)
[2017-11-09] MEDS: CALCIUM ACETATE 667 MG CAP PO ×3 (09:40→17:35)
[2017-11-09] MEDS: METOCLOPRAMIDE 5 MG TAB PO ×3 (09:40→17:05)
[2017-11-09] MEDS: ONDANSETRON 4 MG TAB PO (12:22)
[2017-11-09] MEDS: HEPARIN 1000 UNITS/ML 10 ML INJ CATHETER (18:55)
[2017-11-09] MEDS: INSULIN GLARGINE [LANtus] 3 ML PEN SC (20:00)
[2017-11-09] MEDS: ATORVASTATIN 40 MG TAB PO (22:12)
[2017-11-10] MEDS: CIPROFLOXACIN 0.3% 3.5 GM OPH OINT BOTH EYES ×6 (01:00→20:44)
[2017-11-10] MEDS: ACETAMINOPHEN 325 MG TAB PO (01:57)
[2017-11-10] MEDS: ACCUCHECK AT 2AM (Patients on SS coverage) XX (02:00)
[2017-11-10] MEDS: VANCOMYCIN HCL 250 MG/5ML POSYG PO ×4 (06:00→17:34)
[2017-11-10 06:31] LABS: ADD MAN DIFF? NO
[2017-11-10 06:36] LABS: BASOPHIL # 0.1 10^3/ul (0.0-0.1); BASOPHILS % 0.7 % (0.0-2.0); EOSINOPHILS # 0.1 10^3/ul (0.0-0.5); EOSINOPHILS % 1.2 % (0.0-7.0); HEMATOCRIT 33.6 % (42.0-52.0); HEMOGLOBIN 11.4 g/dl (14.0-18.0); LYMPHOCYTES % 11.3 % (15.0-51.0); MEAN CORPUSCULAR HEMOGLOBIN 32.1 pg (29.0-33.0); MEAN CORPUSCULAR HGB CONC 33.9 g/dl (32.0-37.0); MEAN CORPUSCULAR VOLUME 94.6 fl (82.0-101.0); MONOCYTE # 0.8 10^3/ul (0.3-0.9); MONOCYTES % 9.9 % (0.0-11.0); NEUTROPHIL # 6.4 10^3/ul (1.6-7.5); NEUTROPHILS % 76.4 % (39.0-77.0); PLATELET COUNT 279 10^3/UL (140-415); RED BLOOD COUNT 3.55 10^6/ul (4.70-6.10); RED CELL DISTRIBUTION WIDTH 13.8 % (11.5-14.5)
[2017-11-10 06:36] LABS: WHITE BLOOD COUNT 8.4 10^3/ul (4.8-10.8)
[2017-11-10 06:55] LABS: ALANINE AMINOTRANSFERASE 24 IU/L (13-69); ALBUMIN 3.4 g/dl (3.3-4.9); ALBUMIN/GLOBULIN RATIO 1.09; ALKALINE PHOSPHATASE 70 IU/L (42-121); ANION GAP 13 (8-16); ASPARTATE AMINO TRANSFERASE 17 IU/L (15-46); BILIRUBIN,INDIRECT 0.6 mg/dl (0-1.1); BILIRUBIN,TOTAL 0.6 mg/dl (0.2-1.3); BLOOD UREA NITROGEN 16 mg/dl (7-20); CALCIUM 7.7 mg/dl (8.4-10.2); CARBON DIOXIDE 32 mmol/L (21-31); CHLORIDE 97 mmol/L (97-110); CREATININE 6.13 mg/dl (0.61-1.24); GLUCOSE 107 mg/dl (70-220); POTASSIUM 4.3 mmol/L (3.5-5.1); SODIUM 138 mmol/L (135-144); TOTAL PROTEIN 6.5 g/dl (6.1-8.1)
[2017-11-10] MEDS: NOVOLOG PEN INSULIN ASPART (BOLUS with meals) SC ×3 (07:35→17:34)
[2017-11-10] MEDS: ONDANSETRON 4 MG TAB PO (07:35)
[2017-11-10] MEDS: CALCIUM ACETATE 667 MG CAP PO ×3 (07:35→17:33)
[2017-11-10] MEDS: Insulin NOVOLOG SS MILD Algorithm (SS with meals and bedtime) SC ×4 (07:35→20:46)
[2017-11-10] MEDS: METOCLOPRAMIDE 5 MG TAB PO ×2 (07:35→17:32)
[2017-11-10] MEDS: SEVELAMER CARBONATE 0.8 GM PKT PO ×3 (07:35→17:34)
[2017-11-10] MEDS: RANOLAZINE (SR) 500 MG TAB PO ×2 (09:00→20:50)
[2017-11-10] MEDS: NIFEdipine (XL) 30 MG TAB PO ×2 (09:00→20:45)
[2017-11-10] MEDS: ASPIRIN (EC) 81 MG TAB PO (09:00)
[2017-11-10] MEDS: LEVETIRACETAM 500 MG TAB PO ×2 (09:00→15:48)
[2017-11-10] MEDS: TICAGRELOR 90 MG TABLET PO ×2 (09:00→20:57)
[2017-11-10] MEDS: FOLIC ACID 0.4 MG TAB PO (09:00)
[2017-11-10] MEDS: FAMOTIDINE 20 MG TAB PO (09:00)
[2017-11-10] MEDS: ISOSORBIDE MONONITRATE(SR)60 MG TAB PO (09:00)
[2017-11-10] MEDS: BENAZEPRIL 10 MG TAB PO ×2 (09:00→20:44)
[2017-11-10] MEDS ORDERED: LEVETIRACETAM 1000 MG (PMX) 100 ML IVPB (11:30)
[2017-11-10] MEDS ORDERED: METOCLOPRAMIDE 10 MG INJ IV (11:30)
[2017-11-10] MEDS ORDERED: ONDANSETRON (ODT) 4 MG TAB ODT (14:30)
[2017-11-10] MEDS: ONDANSETRON (ODT) 4 MG TAB ODT ×2 (14:57→21:32)
[2017-11-10] MEDS: HYDROCODONE/APAP (5/325) TAB PO (17:43)
[2017-11-10] MEDS: ATORVASTATIN 40 MG TAB PO (20:44)
[2017-11-10] MEDS: INSULIN GLARGINE [LANtus] 3 ML PEN SC (20:57)
[2017-11-11] MEDS: CIPROFLOXACIN 0.3% 3.5 GM OPH OINT BOTH EYES ×5 (01:00→12:27)
[2017-11-11] MEDS: ACCUCHECK AT 2AM (Patients on SS coverage) XX (02:00)
[2017-11-11] MEDS: METOCLOPRAMIDE 5 MG TAB PO ×2 (06:26→10:48)
[2017-11-11] MEDS: VANCOMYCIN HCL 250 MG/5ML POSYG PO ×3 (06:26→12:00)
[2017-11-11] MEDS: NOVOLOG PEN INSULIN ASPART (BOLUS with meals) SC (07:35)
[2017-11-11] MEDS: Insulin NOVOLOG SS MILD Algorithm (SS with meals and bedtime) SC ×2 (07:35→12:00)
[2017-11-11] MEDS: SEVELAMER CARBONATE 0.8 GM PKT PO ×3 (08:00→12:00)
[2017-11-11] MEDS: ONDANSETRON (ODT) 4 MG TAB ODT (08:00)
[2017-11-11] MEDS: CALCIUM ACETATE 667 MG CAP PO ×2 (08:06→12:00)
[2017-11-11] MEDS: RANOLAZINE (SR) 500 MG TAB PO (08:08)
[2017-11-11] MEDS: BENAZEPRIL 10 MG TAB PO (09:00)
[2017-11-11] MEDS: NIFEdipine (XL) 30 MG TAB PO (09:00)
[2017-11-11] MEDS: ISOSORBIDE MONONITRATE(SR)60 MG TAB PO (10:44)
[2017-11-11] MEDS: FOLIC ACID 0.4 MG TAB PO (10:45)
[2017-11-11] MEDS: FAMOTIDINE 20 MG TAB PO (10:45)
[2017-11-11] MEDS: LEVETIRACETAM 500 MG TAB PO (10:46)
[2017-11-11] MEDS: ASPIRIN (EC) 81 MG TAB PO (10:46)
[2017-11-11] MEDS: TICAGRELOR 90 MG TABLET PO (10:47)
[2017-11-11] MEDS ORDERED: METOCLOPRAMIDE 10 MG INJ IV ×2 (13:30→17:05)
[2017-11-11] MEDS ORDERED: INSULIN GLARGINE [LANtus] 3 ML PEN SC (20:00)
== END 2017-11-11 14:35 | disposition short-term general hospital (02) | DRG 91 ==
LOC: VRC 22:32
PROVIDERS: Physical Medicine & Rehabilitation
PROC: F07Z9FZ Gait Training/Functional Ambulation Treatment using Assistive, Adaptive, Supportive or Protective Equipment (ICD-10-PCS; principal; 2017-11-04)
PROC: F07Z8FZ Transfer Training Treatment using Assistive, Adaptive, Supportive or Protective Equipment (ICD-10-PCS; 2017-11-04)
PROC: F07Z5FZ Bed Mobility Treatment using Assistive, Adaptive, Supportive or Protective Equipment (ICD-10-PCS; 2017-11-04)
PROC: F08Z2FZ Grooming/Personal Hygiene Treatment using Assistive, Adaptive, Supportive or Protective Equipment (ICD-10-PCS; 2017-11-04)
PROC: F08Z0FZ Bathing/Showering Techniques Treatment using Assistive, Adaptive, Supportive or Protective Equipment (ICD-10-PCS; 2017-11-04)
PROC: F08Z1FZ Dressing Techniques Treatment using Assistive, Adaptive, Supportive or Protective Equipment (ICD-10-PCS; 2017-11-04)
PROC: 5A1D70Z Performance of Urinary Filtration, Intermittent, Less than 6 Hours Per Day (ICD-10-PCS; 2017-11-04)
DX: G92 Toxic encephalopathy (principal); I50.23 Acute on chronic systolic (congestive) heart failure; N18.6 End stage renal disease; I13.2 Hypertensive heart and chronic kidney disease with heart failure and with stage 5 chronic kidney disease, or end stage renal disease; A04.72 Enterocolitis due to Clostridium difficile, not specified as recurrent; I25.10 Atherosclerotic heart disease of native coronary artery without angina pectoris; G40.909 Epilepsy, unspecified, not intractable, without status epilepticus; E78.5 Hyperlipidemia, unspecified; E11.22 Type 2 diabetes mellitus with diabetic chronic kidney disease; D64.9 Anemia, unspecified; D63.1 Anemia in chronic kidney disease; F06.31 Mood disorder due to known physiological condition with depressive features; R74.8 Abnormal levels of other serum enzymes; E11.40 Type 2 diabetes mellitus with diabetic neuropathy, unspecified; R11.2 Nausea with vomiting, unspecified; Z95.5 Presence of coronary angioplasty implant and graft; Z99.2 Dependence on renal dialysis
CPT/HCPCS: 80053; 81001; 82962; 85025; 87081; 87086; 90935; 92507; 97110; 97112; 97116; 97167; 97530; 97535

== ENCOUNTER 2017-11-11 13:30 | Inpatient (IN) | payer MEDICARE, OTHER ==
[2017-11-11] MEDS ORDERED: ACETAMINOPHEN 325 MG TAB PO (17:00)
[2017-11-11] MEDS ORDERED: PENDING SANTYL ORDER FOR WOUND CARE XX (17:00)
[2017-11-11] MEDS ORDERED: BISACODYL (EC) 5 MG TAB PO (17:00)
[2017-11-11] MEDS ORDERED: DEXTROSE 50% 50 ML SYRINGE IV ×2 (17:30)
[2017-11-11] MEDS ORDERED: GLUCAGON 1 MG INJ IM (17:30)
[2017-11-11] MEDS ORDERED: GLUCOSE GEL 15 GRAM TUBE PO ×2 (17:30)
[2017-11-11] MEDS ORDERED: GLUCOSE GEL 15 GRAM TUBE BUCCAL (17:30)
[2017-11-11] MEDS: INSULIN ASPART [NOVOLOG] 3 ML PEN SC ×2 (17:45→21:00)
[2017-11-11] MEDS ORDERED: LORAZEPAM 2 MG INJ IV (18:00)
[2017-11-11] MEDS ORDERED: HYDROCODONE/APAP (5/325) TAB PO (18:00)
[2017-11-11] MEDS ORDERED: morphine 2 MG INJ IV (18:00)
[2017-11-11] MEDS: HEPARIN 1000 UNITS/ML 10 ML INJ CATHETER (20:54)
[2017-11-11] MEDS: CIPROFLOXACIN 0.3% 3.5 GM OPH OINT BOTH EYES (21:00)
[2017-11-11] MEDS: BENAZEPRIL 10 MG TAB PO (21:52)
[2017-11-11] MEDS: LEVETIRACETAM 500 MG TAB PO (21:53)
[2017-11-11] MEDS: ATORVASTATIN 40 MG TAB PO (21:54)
[2017-11-11] MEDS: RANOLAZINE (SR) 500 MG TAB PO (21:54)
[2017-11-11] MEDS: NIFEdipine (XL) 30 MG TAB PO (21:55)
[2017-11-11] MEDS: TICAGRELOR 90 MG TABLET PO (21:56)
[2017-11-11] MEDS: INSULIN GLARGINE [LANtus] 3 ML PEN SC (21:57)
[2017-11-11] MEDS: CALCIUM ACETATE 667 MG CAP PO (22:07)
[2017-11-11] MEDS: VANCOMYCIN HCL 250 MG/5ML POSYG PO (22:08)
[2017-11-12] MEDS: CIPROFLOXACIN 0.3% 3.5 GM OPH OINT BOTH EYES ×6 (01:00→21:02)
[2017-11-12] MEDS: ACCU-CHEK XX (01:55)
[2017-11-12] MEDS: ONDANSETRON 4 MG TAB PO (05:47)
[2017-11-12] MEDS: VANCOMYCIN HCL 250 MG/5ML POSYG PO ×3 (05:48→11:54)
[2017-11-12] MEDS: INSULIN ASPART [NOVOLOG] 3 ML PEN SC ×4 (08:00→21:00)
[2017-11-12] MEDS: ASPIRIN (EC) 81 MG TAB PO (08:47)
[2017-11-12] MEDS: DOCUSATE SODIUM 100 MG CAP PO (08:47)
[2017-11-12] MEDS: CALCIUM ACETATE 667 MG CAP PO ×3 (08:48→17:22)
[2017-11-12] MEDS: TICAGRELOR 90 MG TABLET PO ×2 (08:48→21:06)
[2017-11-12] MEDS: FOLIC ACID 0.4 MG TAB PO (08:49)
[2017-11-12] MEDS: SENNA TAB PO (08:49)
[2017-11-12] MEDS: METOCLOPRAMIDE 5 MG TAB PO ×3 (08:49→17:22)
[2017-11-12] MEDS: RANOLAZINE (SR) 500 MG TAB PO ×2 (08:49→21:04)
[2017-11-12] MEDS: FAMOTIDINE 20 MG TAB PO (08:49)
[2017-11-12] MEDS: LEVETIRACETAM 500 MG TAB PO (08:49)
[2017-11-12] MEDS: BENAZEPRIL 10 MG TAB PO ×2 (08:51→21:02)
[2017-11-12] MEDS: SEVELAMER CARBONATE 0.8 GM PKT PO ×3 (08:54→17:11)
[2017-11-12] MEDS: HEPARIN 5,000 UNIT/0.5 ML VIAL SC ×2 (10:00→21:03)
[2017-11-12] MEDS: ISOSORBIDE MONONITRATE(SR)60 MG TAB PO (10:20)
[2017-11-12] MEDS: NIFEdipine (XL) 30 MG TAB PO ×2 (10:20→21:04)
[2017-11-12] MEDS: ATORVASTATIN 40 MG TAB PO (21:04)
[2017-11-12] MEDS: INSULIN GLARGINE [LANtus] 3 ML PEN SC (21:07)
[2017-11-13] MEDS: CIPROFLOXACIN 0.3% 3.5 GM OPH OINT BOTH EYES ×7 (01:00→17:00)
[2017-11-13] MEDS: ACCU-CHEK XX (02:00)
[2017-11-13] MEDS: GUAIFENESIN/DM 5ML CUP PO (02:40)
[2017-11-13] MEDS: HEPARIN 5,000 UNIT/0.5 ML VIAL SC ×3 (06:00→21:35)
[2017-11-13] MEDS: INSULIN ASPART [NOVOLOG] 3 ML PEN SC ×5 (08:00→21:00)
[2017-11-13] MEDS: SEVELAMER CARBONATE 0.8 GM PKT PO ×4 (08:10→17:31)
[2017-11-13] MEDS: METOCLOPRAMIDE 5 MG TAB PO ×3 (08:10→17:28)
[2017-11-13] MEDS: CALCIUM ACETATE 667 MG CAP PO ×3 (08:11→17:28)
[2017-11-13] MEDS: HEPARIN 1000 UNITS/ML 10 ML INJ CATHETER (12:19)
[2017-11-13] MEDS: TICAGRELOR 90 MG TABLET PO ×2 (12:20→21:27)
[2017-11-13] MEDS: ASPIRIN (EC) 81 MG TAB PO (12:21)
[2017-11-13] MEDS: FAMOTIDINE 20 MG TAB PO (12:21)
[2017-11-13] MEDS: LEVETIRACETAM 500 MG TAB PO ×2 (12:21→21:26)
[2017-11-13] MEDS: BENAZEPRIL 10 MG TAB PO ×2 (12:21→21:28)
[2017-11-13] MEDS: RANOLAZINE (SR) 500 MG TAB PO ×2 (12:21→21:25)
[2017-11-13] MEDS: FOLIC ACID 0.4 MG TAB PO (12:22)
[2017-11-13] MEDS: ISOSORBIDE MONONITRATE(SR)60 MG TAB PO (12:22)
[2017-11-13] MEDS: NIFEdipine (XL) 30 MG TAB PO ×2 (12:22→21:25)
[2017-11-13] MEDS: INSULIN GLARGINE [LANtus] 3 ML PEN SC (21:27)
[2017-11-13] MEDS: ATORVASTATIN 40 MG TAB PO (21:32)
[2017-11-14] MEDS: ACCU-CHEK XX (02:00)
[2017-11-14] MEDS: HEPARIN 5,000 UNIT/0.5 ML VIAL SC (05:15)
[2017-11-14] MEDS: INSULIN ASPART [NOVOLOG] 3 ML PEN SC ×2 (08:00→12:00)
[2017-11-14] MEDS: METOCLOPRAMIDE 5 MG TAB PO ×2 (08:18→12:06)
[2017-11-14] MEDS: CALCIUM ACETATE 667 MG CAP PO ×2 (08:18→11:30)
[2017-11-14] MEDS: SEVELAMER 800 MG TAB PO ×2 (08:18→12:06)
[2017-11-14] MEDS: RANOLAZINE (SR) 500 MG TAB PO (08:23)
[2017-11-14] MEDS: LEVETIRACETAM 500 MG TAB PO (08:23)
[2017-11-14] MEDS: FOLIC ACID 0.4 MG TAB PO (08:23)
[2017-11-14] MEDS: TICAGRELOR 90 MG TABLET PO (08:25)
[2017-11-14] MEDS: ASPIRIN (EC) 81 MG TAB PO (08:26)
[2017-11-14] MEDS: FAMOTIDINE 20 MG TAB PO (08:26)
[2017-11-14] MEDS: BENAZEPRIL 10 MG TAB PO (08:27)
[2017-11-14] MEDS: NIFEdipine (XL) 30 MG TAB PO (08:27)
[2017-11-14] MEDS: ISOSORBIDE MONONITRATE(SR)60 MG TAB PO (08:27)
== END 2017-11-14 13:35 | disposition home or self-care (01) | DRG 391 ==
LOC: PP2 13:30
PROVIDERS: Internal Medicine
PROC: 5A1D70Z Performance of Urinary Filtration, Intermittent, Less than 6 Hours Per Day (ICD-10-PCS; principal; 2017-11-13)
DX: K31.84 Gastroparesis (principal); G93.40 Encephalopathy, unspecified; I50.23 Acute on chronic systolic (congestive) heart failure; N18.6 End stage renal disease; I13.2 Hypertensive heart and chronic kidney disease with heart failure and with stage 5 chronic kidney disease, or end stage renal disease; I42.9 Cardiomyopathy, unspecified; A04.72 Enterocolitis due to Clostridium difficile, not specified as recurrent; I25.10 Atherosclerotic heart disease of native coronary artery without angina pectoris; E11.22 Type 2 diabetes mellitus with diabetic chronic kidney disease; G40.909 Epilepsy, unspecified, not intractable, without status epilepticus; E78.00 Pure hypercholesterolemia, unspecified; D64.9 Anemia, unspecified; K59.00 Constipation, unspecified; R74.8 Abnormal levels of other serum enzymes; I25.2 Old myocardial infarction; E11.40 Type 2 diabetes mellitus with diabetic neuropathy, unspecified; Z99.2 Dependence on renal dialysis; Z95.5 Presence of coronary angioplasty implant and graft; Z87.11 Personal history of peptic ulcer disease
CPT/HCPCS: 74018; 82962; 90935; 97161

== ENCOUNTER 2018-05-10 12:41 | Inpatient (IN) | payer MEDICARE, OTHER ==
[2018-05-10 13:30] LABS: ADD MAN DIFF? NO
[2018-05-10 13:32] LABS: URINE BLOOD (Dip) POC 1+ (NEGATIVE); URINE GLUCOSE (Dip) POC Negative (NEGATIVE); URINE KETONES (Dip) POC Trace (NEGATIVE); URINE LEUKOCYTE EST (Dip) POC 1+ (NEGATIVE); URINE NITRITE (Dip) POC Negative (NEGATIVE); URINE TOTAL PROTEIN POC 3+ (NEGATIVE)
[2018-05-10 13:40] LABS: WHITE BLOOD COUNT 9.5 10^3/ul (4.8-10.8)
[2018-05-10 13:40] LABS: BASOPHILS % 0.2 % (0.0-2.0); HEMATOCRIT 32.9 % (42.0-52.0); HEMOGLOBIN 10.9 g/dl (14.0-18.0); LYMPHOCYTES # 0.9 10^3/ul (0.8-2.9); LYMPHOCYTES % 9.7 % (15.0-51.0); MEAN CORPUSCULAR HEMOGLOBIN 34.5 pg (29.0-33.0); MEAN CORPUSCULAR HGB CONC 33.1 g/dl (32.0-37.0); MEAN CORPUSCULAR VOLUME 104.1 fl (82.0-101.0); MEAN PLATELET VOLUME 12.2 fl (7.4-10.4); MONOCYTE # 0.3 10^3/ul (0.3-0.9); MONOCYTES % 3.4 % (0.0-11.0); NEUTROPHIL # 8.2 10^3/ul (1.6-7.5); NEUTROPHILS % 86.3 % (39.0-77.0); PLATELET COUNT 213 10^3/UL (140-415); RED BLOOD COUNT 3.16 10^6/ul (4.70-6.10); RED CELL DISTRIBUTION WIDTH 13.8 % (11.5-14.5)
[2018-05-10 14:02] LABS: ALANINE AMINOTRANSFERASE 47 IU/L (13-69); ALBUMIN 3.4 g/dl (3.3-4.9); ALBUMIN/GLOBULIN RATIO 0.97; ALKALINE PHOSPHATASE 74 IU/L (42-121); ANION GAP 17 (5-13); ASPARTATE AMINO TRANSFERASE 29 IU/L (15-46); BLOOD UREA NITROGEN 68 mg/dl (7-20); CALCIUM 10.5 mg/dl (8.4-10.2); CARBON DIOXIDE 23 mmol/L (21-31); CHLORIDE 101 mmol/L (97-110); CREATININE 5.97 mg/dl (0.61-1.24); Estimated GFR 10 mL/min (>60); GLUCOSE 162 mg/dl (70-220); LIPASE 285 U/L (23-300); POTASSIUM 4.7 mmol/L (3.5-5.1); SODIUM 141 mmol/L (135-144); TOTAL PROTEIN 6.9 g/dl (6.1-8.1)
[2018-05-10 14:13] LABS: ADD UMIC YES; TROPONIN-I < 0.012 ng/ml (0.000-0.120); UR AMORPHOUS CRYSTAL FEW /HPF (NONE SEEN); UR ASCORBIC ACID NEGATIVE (NEGATIVE); UR BACTERIA FEW /HPF (NONE SEEN); UR BILIRUBIN (Dip) NEGATIVE (NEGATIVE); UR BLOOD (Dip) NEGATIVE (NEGATIVE); UR CLARITY CLOUDY (CLEAR); UR COLOR AMBER (YELLOW); UR GLUCOSE (Dip) NEGATIVE (NEGATIVE); UR KETONES (Dip) TRACE mg/dL (NEGATIVE); UR LEUKOCYTE ESTERASE (Dip) 3+ Leu/ul (NEGATIVE); UR NITRITE (Dip) NEGATIVE (NEGATIVE); UR RBC 7 /HPF (0-5); UR SPECIFIC GRAVITY (Dip) 1.014 (1.003-1.030); UR TOTAL PROTEIN (Dip) 3+ mg/dl (NEGATIVE); UR UROBILINOGEN (Dip) NEGATIVE (NEGATIVE); UR WBC 180 /HPF (0-5)
[2018-05-10] MEDS: CEFEPIME 1GM/50 ML (PMX) 50 ML IVPB (15:00)
[2018-05-10] MEDS ORDERED: ONDANSETRON 4 MG INJ IV (17:30)
[2018-05-10] MEDS ORDERED: NACL 0.9% 3 ML SYG IV (17:30)
[2018-05-10] MEDS ORDERED: GLUCAGON 1 MG INJ IM (18:00)
[2018-05-10] MEDS ORDERED: GLUCOSE GEL 15 GRAM TUBE PO ×2 (18:00)
[2018-05-10] MEDS ORDERED: GLUCOSE GEL 15 GRAM TUBE BUCCAL (18:00)
[2018-05-10] MEDS: CALCIUM ACETATE 667 MG CAP PO (18:00)
[2018-05-10] MEDS ORDERED: DEXTROSE 50% 50 ML SYRINGE IV ×2 (18:00)
[2018-05-10] MEDS ORDERED: VANCOMYCIN IV PER PHARMACY XX (18:00)
[2018-05-10] MEDS: INSULIN ASPART [NOVOLOG] 3 ML PEN SC ×3 (18:30→21:00)
[2018-05-10] MEDS: SEVELAMER CARBONATE 0.8 GM PKT PO (18:30)
[2018-05-10 18:56] LABS: LACTIC ACID 1.1 mmol/L (0.5-2.0)
[2018-05-10 19:00] LABS: CREATINE KINASE < 20 IU/L (23-200)
[2018-05-10 19:05] LABS: HEMOGLOBIN A1C 4.9 % (0-5.9)
[2018-05-10 19:11] LABS: TROPONIN-I < 0.012 ng/ml (0.000-0.120)
[2018-05-10 19:12] LABS: CK-MB 0.45 ng/ml (0.0-2.4)
[2018-05-10] MEDS: LEVETIRACETAM 500 MG TAB PO (20:00)
[2018-05-10] MEDS: BENAZEPRIL 10 MG TAB PO (21:00)
[2018-05-10] MEDS: GABAPENTIN 300 MG CAP PO (21:00)
[2018-05-10] MEDS: RANOLAZINE (SR) 500 MG TAB PO (21:00)
[2018-05-10] MEDS: NIFEdipine (XL) 30 MG TAB PO (21:00)
[2018-05-10] MEDS: TICAGRELOR 90 MG TABLET PO (21:00)
[2018-05-10] MEDS: ATORVASTATIN 40 MG TAB PO (21:00)
[2018-05-10] MEDS: INSULIN GLARGINE [LANTus] (100 UNITS/ML) SYG SC (21:00)
[2018-05-10] MEDS: ACETAMINOPHEN 325 MG TAB PO (21:25)
[2018-05-10] MEDS: HEPARIN 5,000 UNIT/1 ML VIAL SC (22:00)
[2018-05-11 00:01] LABS: HEPATITIS B SURFACE ANTIGEN NEGATIVE (NEGATIVE)
[2018-05-11 00:22] LABS: HEPATITIS B SURFACE ANTIBODY POSITIVE (NEGATIVE)
[2018-05-11] MEDS: HEPARIN 1000 UNITS/ML 10 ML INJ CATHETER (04:30)
[2018-05-11] MEDS: VANCOMYCIN 1.5 GM in SOD CHLORIDE 0.9% 250 ML IVPB (05:26)
[2018-05-11] MEDS ORDERED: HEPARIN 5,000 UNIT/0.5 ML VIAL (05:59)
[2018-05-11] MEDS: HEPARIN 5,000 UNIT/1 ML VIAL SC ×2 (06:07→14:00)
[2018-05-11 06:32] LABS: ADD MAN DIFF? NO
[2018-05-11 06:38] LABS: WHITE BLOOD COUNT 9.6 10^3/ul (4.8-10.8)
[2018-05-11 06:38] LABS: BASOPHILS % 0.2 % (0.0-2.0); EOSINOPHILS % 0.4 % (0.0-7.0); HEMATOCRIT 31.5 % (42.0-52.0); HEMOGLOBIN 10.7 g/dl (14.0-18.0); LYMPHOCYTES # 1.2 10^3/ul (0.8-2.9); MEAN CORPUSCULAR HEMOGLOBIN 34.9 pg (29.0-33.0); MEAN CORPUSCULAR VOLUME 102.6 fl (82.0-101.0); MEAN PLATELET VOLUME 12.1 fl (7.4-10.4); MONOCYTES % 10.6 % (0.0-11.0); NEUTROPHIL # 7.2 10^3/ul (1.6-7.5); NEUTROPHILS % 75.3 % (39.0-77.0); PLATELET COUNT 219 10^3/UL (140-415); RED BLOOD COUNT 3.07 10^6/ul (4.70-6.10); RED CELL DISTRIBUTION WIDTH 13.7 % (11.5-14.5)
[2018-05-11 07:02] LABS: ALANINE AMINOTRANSFERASE 34 IU/L (13-69); ALKALINE PHOSPHATASE 66 IU/L (42-121); ANION GAP 14 (5-13); ASPARTATE AMINO TRANSFERASE 23 IU/L (15-46); BLOOD UREA NITROGEN 47 mg/dl (7-20); CALCIUM 9.5 mg/dl (8.4-10.2); CARBON DIOXIDE 26 mmol/L (21-31); CHLORIDE 98 mmol/L (97-110); CREATININE 4.21 mg/dl (0.61-1.24); Estimated GFR 14 mL/min (>60); GLUCOSE 105 mg/dl (70-220); POTASSIUM 3.9 mmol/L (3.5-5.1); SODIUM 138 mmol/L (135-144); TOTAL PROTEIN 6.3 g/dl (6.1-8.1)
[2018-05-11 07:04] LABS: CHOLESTEROL 132 mg/dl (100-200); HDL CHOLESTEROL 36 mg/dl (30-78); MAGNESIUM 2.4 mg/dl (1.7-2.5); TRIGLYCERIDES 120 mg/dl (0-149)
[2018-05-11 07:04] LABS: LACTIC ACID 1.1 mmol/L (0.5-2.0); PHOSPHORUS 3.6 mg/dl (2.5-4.9)
[2018-05-11 07:05] LABS: CHOL/HDL RATIO 3.6 RATIO; LDL CHOLESTEROL,CALCULATED 72 mg/dl
[2018-05-11 07:14] LABS: CREATINE KINASE < 20 IU/L (23-200)
[2018-05-11] MEDS: INSULIN ASPART [NOVOLOG] 3 ML PEN SC ×8 (08:00→20:11)
[2018-05-11 08:01] LABS: BILIRUBIN,INDIRECT 0.2 mg/dl (0-1.1); BILIRUBIN,TOTAL 0.2 mg/dl (0.2-1.3)
[2018-05-11] MEDS: CALCIUM ACETATE 667 MG CAP PO ×4 (08:28→18:00)
[2018-05-11] MEDS: SEVELAMER CARBONATE 0.8 GM PKT PO ×4 (08:28→18:00)
[2018-05-11] MEDS: BENAZEPRIL 10 MG TAB PO ×2 (08:29→20:15)
[2018-05-11] MEDS: TICAGRELOR 90 MG TABLET PO ×2 (08:32→20:19)
[2018-05-11] MEDS: RANOLAZINE (SR) 500 MG TAB PO ×2 (08:34→20:12)
[2018-05-11] MEDS: METOCLOPRAMIDE 5 MG TAB PO ×3 (08:34→17:30)
[2018-05-11] MEDS: LEVETIRACETAM 500 MG TAB PO (08:34)
[2018-05-11] MEDS: ISOSORBIDE MONONITRATE(SR)60 MG TAB PO (08:35)
[2018-05-11] MEDS: NIFEdipine (XL) 30 MG TAB PO ×2 (08:35→20:20)
[2018-05-11] MEDS: GABAPENTIN 300 MG CAP PO ×4 (08:35→20:13)
[2018-05-11] MEDS: ASPIRIN (EC) 81 MG TAB PO (08:46)
[2018-05-11] MEDS: CEFEPIME 1GM/50 ML (PMX) 50 ML IVPB ×2 (15:00→17:55)
[2018-05-11] MEDS: ACETAMINOPHEN 325 MG TAB PO (17:57)
[2018-05-11] MEDS: ATORVASTATIN 40 MG TAB PO (20:12)
[2018-05-12 06:07] LABS: ADD MAN DIFF? NO
[2018-05-12 06:09] LABS: BASOPHILS % 0.2 % (0.0-2.0); EOSINOPHILS # 0.2 10^3/ul (0.0-0.5); EOSINOPHILS % 1.8 % (0.0-7.0); LYMPHOCYTES # 1.3 10^3/ul (0.8-2.9); LYMPHOCYTES % 15.1 % (15.0-51.0); MEAN CORPUSCULAR HEMOGLOBIN 34.4 pg (29.0-33.0); MEAN CORPUSCULAR HGB CONC 33.3 g/dl (32.0-37.0); MEAN CORPUSCULAR VOLUME 103.1 fl (82.0-101.0); MEAN PLATELET VOLUME 12.1 fl (7.4-10.4); MONOCYTE # 1.1 10^3/ul (0.3-0.9); MONOCYTES % 12.6 % (0.0-11.0); NEUTROPHIL # 5.9 10^3/ul (1.6-7.5); NEUTROPHILS % 70.1 % (39.0-77.0); PLATELET COUNT 193 10^3/UL (140-415); RED BLOOD COUNT 2.91 10^6/ul (4.70-6.10); RED CELL DISTRIBUTION WIDTH 13.9 % (11.5-14.5)
[2018-05-12 06:09] LABS: WHITE BLOOD COUNT 8.5 10^3/ul (4.8-10.8)
[2018-05-12 06:37] LABS: PHOSPHORUS 4.4 mg/dl (2.5-4.9)
[2018-05-12 06:37] LABS: MAGNESIUM 2.4 mg/dl (1.7-2.5)
[2018-05-12 06:38] LABS: ANION GAP 13 (5-13); BLOOD UREA NITROGEN 59 mg/dl (7-20); CALCIUM 9.5 mg/dl (8.4-10.2); CARBON DIOXIDE 22 mmol/L (21-31); CHLORIDE 99 mmol/L (97-110); CREATININE 4.85 mg/dl (0.61-1.24); Estimated GFR 12 mL/min (>60); GLUCOSE 105 mg/dl (70-220); POTASSIUM 3.8 mmol/L (3.5-5.1); SODIUM 134 mmol/L (135-144)
[2018-05-12] MEDS: CALCIUM ACETATE 667 MG CAP PO ×3 (07:52→17:27)
[2018-05-12] MEDS: METOCLOPRAMIDE 5 MG TAB PO ×3 (07:52→17:26)
[2018-05-12] MEDS: SEVELAMER CARBONATE 0.8 GM PKT PO ×3 (07:52→17:27)
[2018-05-12] MEDS: INSULIN ASPART [NOVOLOG] 3 ML PEN SC ×7 (07:53→20:19)
[2018-05-12] MEDS: BENAZEPRIL 10 MG TAB PO ×2 (09:00→20:20)
[2018-05-12] MEDS: NIFEdipine (XL) 30 MG TAB PO ×2 (09:00→20:21)
[2018-05-12 09:17] LABS: IRON 67 ug/dl (35-150)
[2018-05-12 09:26] LABS: % IRON SATURATION 30 % SAT (22-52); TOTAL IRON BINDING CAPACITY 225 ug/dl (241-421)
[2018-05-12] MEDS: RANOLAZINE (SR) 500 MG TAB PO ×2 (09:38→20:20)
[2018-05-12] MEDS: ASPIRIN (EC) 81 MG TAB PO (09:41)
[2018-05-12] MEDS: TICAGRELOR 90 MG TABLET PO ×2 (09:41→20:28)
[2018-05-12] MEDS: GABAPENTIN 300 MG CAP PO ×3 (09:42→20:20)
[2018-05-12] MEDS: LEVETIRACETAM 500 MG TAB PO ×2 (09:42→20:30)
[2018-05-12] MEDS: ISOSORBIDE MONONITRATE(SR)60 MG TAB PO (09:44)
[2018-05-12] MEDS: HEPARIN 1000 UNITS/ML 10 ML INJ CATHETER (13:25)
[2018-05-12] MEDS: RANITIDINE 150 MG TAB PO (15:57)
[2018-05-12] MEDS: CEFEPIME 1GM/50 ML (PMX) 50 ML IVPB (16:00)
[2018-05-12] MEDS: LACTOBACILLUS RHAMNOSUS CAP PO (18:56)
[2018-05-12] MEDS: ATORVASTATIN 40 MG TAB PO (20:20)
[2018-05-12] MEDS: MUPIROCIN 2% 22 GM OINT TOP (20:20)
[2018-05-12] MEDS: metroNIDAZOLE 500 MG TAB PO (22:10)
[2018-05-13 05:05] LABS: ADD MAN DIFF? NO
[2018-05-13 05:15] LABS: BASOPHILS % 0.3 % (0.0-2.0); EOSINOPHILS # 0.2 10^3/ul (0.0-0.5); EOSINOPHILS % 3.5 % (0.0-7.0); HEMATOCRIT 29.4 % (42.0-52.0); HEMOGLOBIN 10.1 g/dl (14.0-18.0); LYMPHOCYTES # 1.5 10^3/ul (0.8-2.9); LYMPHOCYTES % 21.7 % (15.0-51.0); MEAN CORPUSCULAR HEMOGLOBIN 34.8 pg (29.0-33.0); MEAN CORPUSCULAR HGB CONC 34.4 g/dl (32.0-37.0); MEAN CORPUSCULAR VOLUME 101.4 fl (82.0-101.0); MONOCYTES % 14.2 % (0.0-11.0); NEUTROPHIL # 4.1 10^3/ul (1.6-7.5); PLATELET COUNT 195 10^3/UL (140-415); RED CELL DISTRIBUTION WIDTH 13.4 % (11.5-14.5)
[2018-05-13 05:15] LABS: WHITE BLOOD COUNT 6.8 10^3/ul (4.8-10.8)
[2018-05-13 05:33] LABS: VANCOMYCIN,RANDOM 8.8 ug/ml
[2018-05-13 05:33] LABS: ALBUMIN 2.9 g/dl (3.3-4.9); ANION GAP 10 (5-13); BLOOD UREA NITROGEN 36 mg/dl (7-20); CALCIUM 9.2 mg/dl (8.4-10.2); CARBON DIOXIDE 26 mmol/L (21-31); CHLORIDE 96 mmol/L (97-110); CREATININE 3.58 mg/dl (0.61-1.24); GLUCOSE 92 mg/dl (70-220); MAGNESIUM 2.2 mg/dl (1.7-2.5); PHOSPHORUS 3.3 mg/dl (2.5-4.9); POTASSIUM 3.5 mmol/L (3.5-5.1); SODIUM 132 mmol/L (135-144)
[2018-05-13] MEDS: metroNIDAZOLE 500 MG TAB PO ×3 (06:00→21:57)
[2018-05-13] MEDS: INSULIN ASPART [NOVOLOG] 3 ML PEN SC ×7 (07:55→21:00)
[2018-05-13] MEDS: CALCIUM ACETATE 667 MG CAP PO ×4 (08:13→17:26)
[2018-05-13] MEDS: LACTOBACILLUS RHAMNOSUS CAP PO ×3 (08:14→17:37)
[2018-05-13] MEDS: METOCLOPRAMIDE 5 MG TAB PO ×3 (08:14→17:37)
[2018-05-13] MEDS: SEVELAMER CARBONATE 0.8 GM PKT PO ×3 (08:14→17:37)
[2018-05-13] MEDS: RANITIDINE 150 MG TAB PO (08:15)
[2018-05-13] MEDS: GABAPENTIN 300 MG CAP PO ×3 (08:15→21:57)
[2018-05-13] MEDS: RANOLAZINE (SR) 500 MG TAB PO ×2 (08:15→21:56)
[2018-05-13] MEDS: LEVETIRACETAM 500 MG TAB PO (08:16)
[2018-05-13] MEDS: ASPIRIN (EC) 81 MG TAB PO (08:16)
[2018-05-13] MEDS: MUPIROCIN 2% 22 GM OINT TOP ×2 (08:16→21:56)
[2018-05-13] MEDS: TICAGRELOR 90 MG TABLET PO ×2 (08:27→22:06)
[2018-05-13] MEDS: BENAZEPRIL 10 MG TAB PO ×2 (09:00→21:58)
[2018-05-13] MEDS: ISOSORBIDE MONONITRATE(SR)60 MG TAB PO (09:00)
[2018-05-13] MEDS: NIFEdipine (XL) 30 MG TAB PO ×2 (09:00→21:57)
[2018-05-13] MEDS: CEFEPIME 1GM/50 ML (PMX) 50 ML IVPB (14:28)
[2018-05-13] MEDS: VANCOMYCIN 1 GM 250 ML IVPB (17:37)
[2018-05-13] MEDS: ATORVASTATIN 40 MG TAB PO (21:57)
[2018-05-14] MEDS: metroNIDAZOLE 500 MG TAB PO ×3 (06:02→22:27)
[2018-05-14 07:27] LABS: ADD MAN DIFF? NO
[2018-05-14 07:29] LABS: WHITE BLOOD COUNT 7.9 10^3/ul (4.8-10.8)
[2018-05-14 07:29] LABS: BASOPHILS % 0.5 % (0.0-2.0); EOSINOPHILS # 0.5 10^3/ul (0.0-0.5); EOSINOPHILS % 5.7 % (0.0-7.0); HEMOGLOBIN 10.1 g/dl (14.0-18.0); LYMPHOCYTES # 1.6 10^3/ul (0.8-2.9); LYMPHOCYTES % 19.7 % (15.0-51.0); MEAN CORPUSCULAR HEMOGLOBIN 34.9 pg (29.0-33.0); MEAN CORPUSCULAR HGB CONC 34.8 g/dl (32.0-37.0); MEAN CORPUSCULAR VOLUME 100.3 fl (82.0-101.0); MEAN PLATELET VOLUME 12.1 fl (7.4-10.4); MONOCYTE # 0.9 10^3/ul (0.3-0.9); MONOCYTES % 10.8 % (0.0-11.0); NEUTROPHILS % 63.2 % (39.0-77.0); PLATELET COUNT 203 10^3/UL (140-415); RED BLOOD COUNT 2.89 10^6/ul (4.70-6.10); RED CELL DISTRIBUTION WIDTH 13.2 % (11.5-14.5)
[2018-05-14] MEDS: INSULIN ASPART [NOVOLOG] 3 ML PEN SC ×5 (07:29→20:22)
[2018-05-14] MEDS: SEVELAMER CARBONATE 0.8 GM PKT PO ×3 (07:33→17:42)
[2018-05-14] MEDS: METOCLOPRAMIDE 5 MG TAB PO ×3 (07:34→17:43)
[2018-05-14] MEDS: LACTOBACILLUS RHAMNOSUS CAP PO ×3 (07:34→17:43)
[2018-05-14] MEDS: CALCIUM ACETATE 667 MG CAP PO ×2 (07:34→11:41)
[2018-05-14 08:03] LABS: ALBUMIN 2.9 g/dl (3.3-4.9); ANION GAP 9 (5-13); BLOOD UREA NITROGEN 46 mg/dl (7-20); CALCIUM 9.1 mg/dl (8.4-10.2); CARBON DIOXIDE 24 mmol/L (21-31); CHLORIDE 96 mmol/L (97-110); CREATININE 4.35 mg/dl (0.61-1.24); GLUCOSE 86 mg/dl (70-220); MAGNESIUM 2.2 mg/dl (1.7-2.5); PHOSPHORUS 4.1 mg/dl (2.5-4.9); POTASSIUM 3.6 mmol/L (3.5-5.1); SODIUM 129 mmol/L (135-144)
[2018-05-14] MEDS: MUPIROCIN 2% 22 GM OINT TOP ×2 (08:07→20:16)
[2018-05-14] MEDS: LEVETIRACETAM 500 MG TAB PO ×2 (08:08→20:16)
[2018-05-14] MEDS: ASPIRIN (EC) 81 MG TAB PO (08:08)
[2018-05-14] MEDS: GABAPENTIN 300 MG CAP PO ×3 (08:08→20:17)
[2018-05-14] MEDS: RANOLAZINE (SR) 500 MG TAB PO ×2 (08:08→20:16)
[2018-05-14] MEDS: RANITIDINE 150 MG TAB PO (08:08)
[2018-05-14] MEDS: TICAGRELOR 90 MG TABLET PO ×2 (08:14→20:20)
[2018-05-14] MEDS: ISOSORBIDE MONONITRATE(SR)60 MG TAB PO (09:05)
[2018-05-14] MEDS: BENAZEPRIL 10 MG TAB PO ×2 (09:05→20:17)
[2018-05-14] MEDS: NIFEdipine (XL) 30 MG TAB PO ×2 (09:06→20:22)
[2018-05-14] MEDS ORDERED: DOCUSATE SODIUM 100 MG CAP PO (10:00)
[2018-05-14] MEDS ORDERED: SODIUM CHLORIDE 0.9% 1L BAG IV (10:30)
[2018-05-14] MEDS: SUCRALFATE 1 GM TAB PO ×2 (11:40→17:43)
[2018-05-14] MEDS: POLYETHYLENE GLYCOL 17 GM PACKET PO (11:40)
[2018-05-14] MEDS: MULTIVIT/CA CARB/B CMPLX/FA TAB PO (11:41)
[2018-05-14] MEDS: HEPARIN 1000 UNITS/ML 10 ML INJ CATHETER (17:01)
[2018-05-14] MEDS: CEFEPIME 1GM/50 ML (PMX) 50 ML IVPB (17:44)
[2018-05-14] MEDS: EPOETIN 3000 UNITS/1 ML INJ (ESRD) SC (17:45)
[2018-05-14] MEDS: ATORVASTATIN 40 MG TAB PO (20:16)
[2018-05-15] MEDS: SUCRALFATE 1 GM TAB PO ×4 (00:22→17:56)
[2018-05-15] MEDS: metroNIDAZOLE 500 MG TAB PO ×3 (06:32→21:15)
[2018-05-15] MEDS: INSULIN ASPART [NOVOLOG] 3 ML PEN SC ×4 (07:55→21:11)
[2018-05-15] MEDS: RANITIDINE 150 MG TAB PO (08:27)
[2018-05-15] MEDS: LACTOBACILLUS RHAMNOSUS CAP PO ×3 (08:27→17:56)
[2018-05-15] MEDS: GABAPENTIN 300 MG CAP PO ×3 (08:27→21:13)
[2018-05-15] MEDS: ISOSORBIDE MONONITRATE(SR)60 MG TAB PO (08:28)
[2018-05-15] MEDS: NIFEdipine (XL) 30 MG TAB PO ×2 (08:29→21:13)
[2018-05-15] MEDS: RANOLAZINE (SR) 500 MG TAB PO ×2 (08:29→21:13)
[2018-05-15] MEDS: BENAZEPRIL 10 MG TAB PO ×2 (08:34→21:13)
[2018-05-15] MEDS: MULTIVIT/CA CARB/B CMPLX/FA TAB PO (08:34)
[2018-05-15] MEDS: SEVELAMER CARBONATE 0.8 GM PKT PO ×3 (08:34→17:56)
[2018-05-15] MEDS: ASPIRIN (EC) 81 MG TAB PO (08:34)
[2018-05-15] MEDS: POLYETHYLENE GLYCOL 17 GM PACKET PO (08:34)
[2018-05-15] MEDS: METOCLOPRAMIDE 5 MG TAB PO ×3 (08:34→17:56)
[2018-05-15] MEDS: LEVETIRACETAM 500 MG TAB PO (08:34)
[2018-05-15] MEDS: TICAGRELOR 90 MG TABLET PO ×2 (08:55→21:11)
[2018-05-15 10:28] LABS: ADD MAN DIFF? NO
[2018-05-15 10:31] LABS: BASOPHILS % 0.5 % (0.0-2.0); EOSINOPHILS # 0.4 10^3/ul (0.0-0.5); EOSINOPHILS % 5.9 % (0.0-7.0); HEMOGLOBIN 9.7 g/dl (14.0-18.0); LYMPHOCYTES % 16.9 % (15.0-51.0); MEAN CORPUSCULAR HEMOGLOBIN 33.9 pg (29.0-33.0); MEAN CORPUSCULAR HGB CONC 33.4 g/dl (32.0-37.0); MEAN CORPUSCULAR VOLUME 101.4 fl (82.0-101.0); MEAN PLATELET VOLUME 11.7 fl (7.4-10.4); MONOCYTE # 0.7 10^3/ul (0.3-0.9); MONOCYTES % 10.8 % (0.0-11.0); NEUTROPHILS % 65.7 % (39.0-77.0); PLATELET COUNT 192 10^3/UL (140-415); RED BLOOD COUNT 2.86 10^6/ul (4.70-6.10); RED CELL DISTRIBUTION WIDTH 13.2 % (11.5-14.5)
[2018-05-15 10:31] LABS: WHITE BLOOD COUNT 6.1 10^3/ul (4.8-10.8)
[2018-05-15 10:55] LABS: ANION GAP 10 (5-13); BLOOD UREA NITROGEN 28 mg/dl (7-20); CALCIUM 8.8 mg/dl (8.4-10.2); CARBON DIOXIDE 25 mmol/L (21-31); CHLORIDE 99 mmol/L (97-110); CREATININE 3.39 mg/dl (0.61-1.24); GLUCOSE 173 mg/dl (70-220); MAGNESIUM 2.2 mg/dl (1.7-2.5); POTASSIUM 3.6 mmol/L (3.5-5.1); SODIUM 134 mmol/L (135-144)
[2018-05-15] MEDS: MUPIROCIN 2% 22 GM OINT TOP ×2 (11:02→21:13)
[2018-05-15] MEDS: CEFEPIME 1GM/50 ML (PMX) 50 ML IVPB (15:27)
[2018-05-15] MEDS: ATORVASTATIN 40 MG TAB PO (21:12)
[2018-05-16] MEDS: SUCRALFATE 1 GM TAB PO ×5 (00:46→23:11)
[2018-05-16] MEDS: metroNIDAZOLE 500 MG TAB PO ×3 (05:00→21:28)
[2018-05-16] MEDS: INSULIN ASPART [NOVOLOG] 3 ML PEN SC ×4 (08:00→21:00)
[2018-05-16] MEDS: MUPIROCIN 2% 22 GM OINT TOP ×2 (09:00→21:07)
[2018-05-16 10:17] LABS: VANCOMYCIN,RANDOM 11.7 ug/ml
[2018-05-16] MEDS: METOCLOPRAMIDE 5 MG TAB PO ×3 (10:20→18:09)
[2018-05-16] MEDS: SEVELAMER CARBONATE 0.8 GM PKT PO ×3 (10:21→18:08)
[2018-05-16] MEDS: LACTOBACILLUS RHAMNOSUS CAP PO ×3 (10:21→18:08)
[2018-05-16] MEDS: RANITIDINE 150 MG TAB PO (10:22)
[2018-05-16] MEDS: RANOLAZINE (SR) 500 MG TAB PO ×2 (10:22→21:06)
[2018-05-16] MEDS: POLYETHYLENE GLYCOL 17 GM PACKET PO (10:22)
[2018-05-16] MEDS: LEVETIRACETAM 500 MG TAB PO (10:22)
[2018-05-16] MEDS: NIFEdipine (XL) 30 MG TAB PO ×2 (10:24→21:06)
[2018-05-16] MEDS: GABAPENTIN 300 MG CAP PO ×3 (10:24→21:06)
[2018-05-16] MEDS: BENAZEPRIL 10 MG TAB PO ×2 (10:24→21:07)
[2018-05-16] MEDS: ISOSORBIDE MONONITRATE(SR)60 MG TAB PO (10:24)
[2018-05-16] MEDS: MULTIVIT/CA CARB/B CMPLX/FA TAB PO (10:25)
[2018-05-16] MEDS: TICAGRELOR 90 MG TABLET PO ×2 (10:26→21:05)
[2018-05-16] MEDS: ASPIRIN (EC) 81 MG TAB PO (10:29)
[2018-05-16] MEDS: LEVOFLOXACIN 500 MG TAB PO (13:13)
[2018-05-16] MEDS: CEFEPIME 1GM/50 ML (PMX) 50 ML IVPB (15:31)
[2018-05-16] MEDS: VANCOMYCIN 1 GM 250 ML IVPB (16:36)
[2018-05-16] MEDS: ATORVASTATIN 40 MG TAB PO (21:06)
[2018-05-17] MEDS: metroNIDAZOLE 500 MG TAB PO ×2 (06:40→15:54)
[2018-05-17] MEDS: SUCRALFATE 1 GM TAB PO ×3 (06:40→18:05)
[2018-05-17] MEDS ORDERED: POTASSIUM CHLORIDE (SR) 20 MEQ TAB PO (07:03)
[2018-05-17] MEDS: INSULIN ASPART [NOVOLOG] 3 ML PEN SC ×4 (08:00→20:20)
[2018-05-17] MEDS: DOXYCYCLINE 100 MG TAB PO ×2 (09:38→20:18)
[2018-05-17] MEDS: ASPIRIN (EC) 81 MG TAB PO (09:38)
[2018-05-17] MEDS: MULTIVIT/CA CARB/B CMPLX/FA TAB PO (09:38)
[2018-05-17] MEDS: NIFEdipine (XL) 30 MG TAB PO ×2 (09:39→20:18)
[2018-05-17] MEDS: LACTOBACILLUS RHAMNOSUS CAP PO ×3 (09:39→18:05)
[2018-05-17] MEDS: RANOLAZINE (SR) 500 MG TAB PO ×2 (09:39→20:17)
[2018-05-17] MEDS: LEVETIRACETAM 500 MG TAB PO ×2 (09:39→20:24)
[2018-05-17] MEDS: TICAGRELOR 90 MG TABLET PO ×2 (09:40→20:17)
[2018-05-17] MEDS: POLYETHYLENE GLYCOL 17 GM PACKET PO (09:41)
[2018-05-17] MEDS: RANITIDINE 150 MG TAB PO (09:41)
[2018-05-17] MEDS: METOCLOPRAMIDE 5 MG TAB PO ×3 (09:41→18:05)
[2018-05-17] MEDS: GABAPENTIN 300 MG CAP PO ×3 (09:41→20:18)
[2018-05-17] MEDS: ISOSORBIDE MONONITRATE(SR)60 MG TAB PO (09:41)
[2018-05-17] MEDS: MUPIROCIN 2% 22 GM OINT TOP (09:41)
[2018-05-17] MEDS: SEVELAMER CARBONATE 0.8 GM PKT PO ×3 (09:42→18:05)
[2018-05-17] MEDS: BENAZEPRIL 10 MG TAB PO ×2 (09:47→20:19)
[2018-05-17 14:16] LABS: ADD MAN DIFF? NO
[2018-05-17 14:19] LABS: BASOPHILS % 0.5 % (0.0-2.0); EOSINOPHILS # 0.4 10^3/ul (0.0-0.5); EOSINOPHILS % 4.7 % (0.0-7.0); HEMATOCRIT 29.2 % (42.0-52.0); HEMOGLOBIN 9.9 g/dl (14.0-18.0); LYMPHOCYTES # 1.1 10^3/ul (0.8-2.9); LYMPHOCYTES % 14.5 % (15.0-51.0); MEAN CORPUSCULAR HEMOGLOBIN 35.2 pg (29.0-33.0); MEAN CORPUSCULAR HGB CONC 33.9 g/dl (32.0-37.0); MEAN CORPUSCULAR VOLUME 103.9 fl (82.0-101.0); MEAN PLATELET VOLUME 11.9 fl (7.4-10.4); MONOCYTE # 0.7 10^3/ul (0.3-0.9); MONOCYTES % 8.7 % (0.0-11.0); NEUTROPHIL # 5.5 10^3/ul (1.6-7.5); NEUTROPHILS % 71.3 % (39.0-77.0); PLATELET COUNT 212 10^3/UL (140-415); RED BLOOD COUNT 2.81 10^6/ul (4.70-6.10); RED CELL DISTRIBUTION WIDTH 13.9 % (11.5-14.5)
[2018-05-17 14:19] LABS: WHITE BLOOD COUNT 7.7 10^3/ul (4.8-10.8)
[2018-05-17 14:39] LABS: ALBUMIN 3.2 g/dl (3.3-4.9); ANION GAP 11 (5-13); BLOOD UREA NITROGEN 51 mg/dl (7-20); CALCIUM 9.1 mg/dl (8.4-10.2); CARBON DIOXIDE 23 mmol/L (21-31); CHLORIDE 99 mmol/L (97-110); CREATININE 5.06 mg/dl (0.61-1.24); GLUCOSE 167 mg/dl (70-220); MAGNESIUM 2.3 mg/dl (1.7-2.5); PHOSPHORUS 2.9 mg/dl (2.5-4.9); SODIUM 133 mmol/L (135-144)
[2018-05-17 14:42] LABS: POTASSIUM 4.7 mmol/L (3.5-5.1)
[2018-05-17] MEDS: EPOETIN 3000 UNITS/1 ML INJ (ESRD) SC (18:11)
[2018-05-17] MEDS: HEPARIN 1000 UNITS/ML 10 ML INJ CATHETER (19:34)
[2018-05-17] MEDS: ATORVASTATIN 40 MG TAB PO (20:18)
== END 2018-05-17 21:30 | DRG 177 ==
LOC: E/R 12:41 → PP2 05-15 18:09 → 2NE 14:48 → TEL 05-11 22:05
PROC: 5A1D70Z Performance of Urinary Filtration, Intermittent, Less than 6 Hours Per Day (ICD-10-PCS; principal; 2018-05-11)
DX: J69.0 Pneumonitis due to inhalation of food and vomit (principal); N18.6 End stage renal disease; G93.40 Encephalopathy, unspecified; N39.0 Urinary tract infection, site not specified; I69.954 Hemiplegia and hemiparesis following unspecified cerebrovascular disease affecting left non-dominant side; I13.2 Hypertensive heart and chronic kidney disease with heart failure and with stage 5 chronic kidney disease, or end stage renal disease; I50.30 Unspecified diastolic (congestive) heart failure; D63.1 Anemia in chronic kidney disease; E11.22 Type 2 diabetes mellitus with diabetic chronic kidney disease; E78.5 Hyperlipidemia, unspecified; F32.9 Major depressive disorder, single episode, unspecified; G40.909 Epilepsy, unspecified, not intractable, without status epilepticus; G47.33 Obstructive sleep apnea (adult) (pediatric); I25.10 Atherosclerotic heart disease of native coronary artery without angina pectoris; B96.4 Proteus (mirabilis) (morganii) as the cause of diseases classified elsewhere; Z16.24 Resistance to multiple antibiotics; Z95.5 Presence of coronary angioplasty implant and graft; Z99.2 Dependence on renal dialysis; Z22.322 Carrier or suspected carrier of Methicillin resistant Staphylococcus aureus; Z86.19 Personal history of other infectious and parasitic diseases; Z88.0 Allergy status to penicillin; Z79.02 Long term (current) use of antithrombotics/antiplatelets; Z79.82 Long term (current) use of aspirin; Z79.4 Long term (current) use of insulin
CPT/HCPCS: 70360; 70551; 71045; 74018; 80048; 80053; 80061; 80069; 80202; 81001; 81003; 82550; 82553; 82607; 82962; 83036; 83540; 83605; 83690; 83735; 84100; 84484; 85025; 86706; 87040; 87081; 87086; 87340; 90935; 93005; 93970; 97162; 97167; 99291-25